=== PATIENT | female | born 1935 | race Caucasian/White ===

== ENCOUNTER 2017-01-23 13:38 | Inpatient (IN) | payer MEDICARE, OTHER ==
[~2017-01-23] VITALS: Ht 152.4 cm; Wt 52.4 kg
[~2017-01-23 13:38] MED LIST: ATIVAN0.5 MG PO; EXELON1 PATCH .2 TRANSDERM; KLONOPIN0.5 MG PO; LISINOPRIL10 MG PO; NAMENDA5 MG PO; SEROQUEL25 MG PO; SYNTHROID25 MCG PO; SYNTHROID50 MCG PO
[2017-01-23] MEDS ORDERED: EXELON1 PATCH .2 TRANSDERM (14:15)
[2017-01-23] MEDS ORDERED: LEXAPRO10 MG PO (14:15)
[2017-01-23] MEDS ORDERED: VITAMIN D250000 UNIT PO (14:16)
[2017-01-23] MEDS ORDERED: HYDROCODON-ACE1 EAC7 PO (14:17)
[2017-01-23] MEDS ORDERED: PREVACID15 MG PO (14:18)
[2017-01-23] MEDS ORDERED: MELATONIN10 M1 PO (15:04)
[2017-01-23] MEDS ORDERED: SYNTHROID50 MCG PO (15:04)
[2017-01-23 15:19] VITALS: BP 138/67
[2017-01-23 15:20] VITALS: BMI 21.1
--- NOTE | 2017-01-23 15:26 | NUR ---
PT WAS ADMITTED FROM HOME BY A REFERAL FROM PCP DR. SARMIENTO. IT WAS REPORTED THAT THE WAS HALLUCINATING AT HOME AND SEEING PEOPLE TRYING TO BREAK INTO HER HOME. PT LIVES AT HOME WITH SPOUSE BUT SPOUSE IS NOW IN [facility]. PT IS AMBULATORY WITH A WALKER. PT FELL THIS MORNING PER DAUGHTER. PT IS A DNR. DTR TO BRING LIVING WILL TO UNIT. PT IS ORIENTED TO PERSON ONLY. CODE WORD IS JONATHAN. FALL PRECAUTIONS INITIATED. WILL CONTINUE TO MONITOR.
[2017-01-23 18:28] VITALS: BP 138/67; BMI 21.1
[2017-01-23 21:41] VITALS: BP 157/66
--- NOTE | 2017-01-24 01:24 | NUR ---
B) patient alert and oriented to self and being in a hospital, very confused, anxious at times, says she should not be here, I) Administerd perscribed medications, monitored for safety, R) Medication compliant, resting now quietly, P) Continue plan of care.
[2017-01-24 05:36] LABS: BASOPHILS 0.2 % (0-2); EOSINOPHILS 4.8 % (0-7); HEMOGLOBIN 13.9 g/dL (12-16); LYMPHOCYTES 40.7 % (15-50); MCH 32.6 pg (26.0-34.0); MCHC 33.1 g/dL (31.0-37.0); MCV 98.6 fL (80.0-100.0); MEAN PLATELET VOLUME 11.1 fL (7.4-10.4); MONOCYTES 13.9 % (2-11); NEUTROPHILS 40.4 % (40-80); RBC 4.26 10x6/uL (4.00-5.40); RDW 13.5 % (11.5-14.5); WBC 4.2 10x3/uL (4.8-10.8)
[2017-01-24 05:37] LABS: PLATELET COUNT 179 10x3/uL (130-400)
[2017-01-24 05:39] LABS: HEMOGLOBIN A1C 5.2 % (4.8-6.0)
[2017-01-24 06:02] LABS: ALBUMIN 3.6 g/dL (3.4-5.0); ALKALINE PHOSPHATASE 84 U/L (46-116); ALT (SGPT) 19 U/L (10-68); BILIRUBIN - TOTAL 0.43 mg/dL (0.2-1.3); CALC OSMOLALITY 288 mosm/kg (275-300); CALCIUM 9.1 mg/dL (8.5-10.1); CARBON DIOXIDE 30.7 mmol/L (21.0-32.0); CHLORIDE - SERUM 106 mmol/L (98-107); CHOL - HDL RATIO 2.4 ratio (2.3-4.1); CHOLESTEROL, TOTAL 189 mg/dL (0-200); CREATININE - SERUM 0.7 mg/dL (0.6-1.3); GLUCOSE 83 mg/dL (74-106); HDL CHOLESTEROL 79 mg/dL (32-96); LDL CHOLESTEROL 98 mg/dL (0-100); LDL-HDL RATIO 1.2 ratio (1.5-3.5); POTASSIUM - SERUM 3.8 mmol/L (3.5-5.1); PROTEIN - SERUM 7.6 g/dL (6.4-8.2); SODIUM 145 mmol/L (136-145); THYROID STIMULATING HORMONE 1.71 uIU/mL (0.36-3.74); TRIGLYCERIDE 61 mg/dL (30-200); UREA NITROGEN 14 mg/dL (7-18); eGFR NON AFRICAN AMERICAN 85 mL/min (90-120)
[2017-01-24 08:12] VITALS: BP 156/82
--- NOTE | 2017-01-24 12:44 | NUR ---
B) PATIENT IS AWAKE AND ALERT, SHE HAS BEEN CALM AND PLEASANT. SHE HAS SOME CONFUSION, NO HALLUCINATIONS NOTED TODAY. PATIENT SELF PROPELS IN A W/C, BUT SHE NEEDS STAFF ASSIST FOR TRANSFERS. I) PROVIDE PRESCRIBED MEDS. R) PATIENT IS CONFUSED AND SHE IS SAYING "OK, I NEED TO CALL MY TO COME PICK ME UP" PATIENT'S IS IN THE HOSPITAL AND SHE EVEN TOLD STAFF HE IS IN THE OTHER HOSPITAL. P) CONTINUE POC.
--- NOTE | 2017-01-24 17:14 | NUR ---
PATIENT IS VERY DISTRAUGHT, SHE IS CRYING AND UPSET, SHE IS CONFUSED, SHE KEEPS ASKING THE SAME THINGS OVER AND OVER. SHE IS WORRIED ABOUT HER AND SHE IS WORRIED ABOUT PAYING FOR HER FOOD. SHE REDIRECTS FOR A MINUTE THEN SHE FORGETS, SHE HAS NO INSIGHT INTO HER ILLNESS. PROVIDED 2 MG HALDOL AND 0.5 MG ATIVAN PO. WILL MONITOR, SHE IS MAKING HERSELF ANXIOUS AND SHE IS UPSETTING SOME OF THE OTHER PATIENTS.
--- NOTE | 2017-01-24 18:02 | NUR ---
ATTEMPTED TO CALL PATIENTS SPOUSE, BUT THERE WAS NO ANSWER. PATIENT IS BEING MANIPULATIVE BECAUSE SHE WANTS TO LEAVE. SHE IS SAD. SHE IS SAYING "PEOPLE LOVE ME AND SHE DIDN'T HAVE TO BE MEAN TO ME"
--- NOTE | 2017-01-24 18:16 | NUR ---
PATIENT IS SITTING BY ANOTHER PATIENT AND SHE IS BEING A BIT CALMER NOW.
[2017-01-24 19:52] VITALS: BP 178/68
--- NOTE | 2017-01-24 21:30 | NUR ---
B) RECEIVED IN DAYROOM SITTING ON SOFA ALONE. AWAKE AND ALERT, BUT CONFUSED. CALM AND COOPERATIVE WITH ASSESSMENT. NO HALLUCINATIONS NOTED. I) ADMINISTERED PRESCRIBED MEDICATIONS. ASSESSMENT COMPLETED. VSS. R) COMPLIANT WITH TAKING MEDS WHOLE IN APPLESAUCE. REDIRECT AND REORIENT PRN. P) MAINTAINED FALL PRECAUTIONS AND CONTINUE PLAN OF CARE.
[2017-01-25 06:13] LABS: RAPID PLASMA REAGIN Non Reactive (Non Reactive)
[2017-01-25 08:18] LABS: FOLATE (FOLIC ACID) - SERUM >20.0 ng/mL (>3.0)
[2017-01-25 08:46] VITALS: BP 159/69
--- NOTE | 2017-01-25 09:20 | NUR ---
B) PATIENT BEGAN THE MORNING TEARFUL, WANTS TO GO HOME, NEEDS TO CHECK ON HER , WANTS TO CHECK ON HER , PATIENT HAS NO INSIGHT INTO HER SITUATION OR ILLNESS, SHE IS TEARFUL AND ANXIOUS. PATIENT I HAS BEEN IN A W/C SELF PROPELLING. I) PROVIDE ATIVAN 0.5 MG PO NOW TO RELIEVE SOME ANXIETY. R) PATIENT IS COMPLIANT WITH MEDS, BUT SHE IS WORRYING. P) CONTINUE POC.
[2017-01-25 19:30] VITALS: BP 146/65
--- NOTE | 2017-01-25 20:20 | NUR ---
ASSESSMENT COMPLETED. RECEIVED IN DAYROOM, GOING AROUND IN WHEELCHAIR. AWAKE AND CONFUSED. NO HALLUCINATIONS NOTED. ADMINISTERED MEDICATIONS WHOLE, BUT IN APPLESAUCE. REORIENT AND REDIRECT NEEDED. CONTINIE POC.
[2017-01-26 09:07] VITALS: BP 159/72
--- NOTE | 2017-01-26 10:43 | PN ---
PATIENT:JASEN BLEVINS MEDICAL RECORD: [id number] LOCATION:KEIRA Roman112 ADMISSION DATE: 01/23/17 PROGRESS NOTE DATE OF SERVICE: 01/25/2017 SUBJECTIVE: The patient's case was discussed with staff. She has no new complaint. OBJECTIVE: The patient is eating reasonably well. She is also sleeping well. She did require some p.r.n. medication yesterday for agitation, but so far today, she has been fine. ASSESSMENT: No change in diagnoses. PLAN: Supportive and educational interventions were made. Retirement prognosis is guarded. TRANSINT:[id number] Voice Confirmation ID: [id number] DOCUMENT ID: [id number] TYSON LOWERY MD at 1043 CC: [id number] DICTATION DATE: 01/25/17 1255 RADIO INTERFERENCE TROUBLE SHOOTER: 01/25/17 1803 ADM IN [place] [id number] [place] [id number]
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
[2017-01-26 19:30] VITALS: BP 129/72
--- NOTE | 2017-01-26 21:00 | NUR ---
B) RECEIVED IN DAYROOM SITTING IN WHEELCHAIR, SOCIALIZING WITH PEERS. IN A PLEASANT MOOD, BUT IS CONFUSED. SELF PROPELS IN W/C. CALM AND COOPERA- TIVE WITH ASSESSMENT. I) ADMINISTERED MEDICATIONS WHOLE IN APPLESAUCE. VSS. R) MEDICATION COMPLIANT. P) CONTINUE PLAN OF CARE.
[2017-01-27 07:00] VITALS: BP 138/83
--- NOTE | 2017-01-27 11:36 | PN ---
PATIENT:JASEN BLEVINS MEDICAL RECORD: [id number] LOCATION:[facility] Roman112 ADMISSION DATE: 01/23/17 PROGRESS NOTE DATE OF SERVICE: 01/26/2017 Psychiatric Progress Note SUBJECTIVE: The patient's case was discussed with staff. She has no new complaint. OBJECTIVE: The patient is in good behavioral control with limited insight about her condition. She has had some disruptive and anxious behavior. ASSESSMENT: No change in diagnoses. PLAN: The patient has been getting a low dose of Seroquel. I am going to change that to Trilafon in an effort to help organize her thinking. Her long-term prognosis is quite poor as her dementia is very advanced. TRANSINT:[id number] Voice Confirmation ID: [id number] DOCUMENT ID: [id number] TYSON LOWERY MD at 1136 CC: [id number] DICTATION DATE: 01/26/17 1124 SERVICE DISMANTLER: 01/26/17 1149 ADM IN [place] [id number] [place] [address]
[2017-01-27 12:11] VITALS: Ht 152.4 cm; Wt 52.4 kg
--- NOTE | 2017-01-27 13:43 | NUR ---
PT HAS BEEN PLEASANT AND HAS HAD NO TEARFUL EPISODES. PT IS STILL CONFUSED BUT IS EASILY REDIRECTED WHEN NEEDED. MEDICATIONS GIVEN ORDERED. FALL PRECAUTIONS MAINTAINED. WILL CONTINUE TO MONITOR AND CONTINUE WITH PLAN OF CARE.
--- NOTE | 2017-01-27 18:05 | NUR ---
UPDATED FAMILY ON PT'S MEDICATIONS AND BEHAVIOR. PT WAS TEARFUL DURING VISITATION BUT SHE STATED THAT THEY WERE HAPPY TEARS.
[2017-01-27 19:30] VITALS: BP 133/69
--- NOTE | 2017-01-28 02:57 | NUR ---
B) Patient alert and oriented to self and being in a hospital, worried about paying staff, wandering out of her room several times before settling down, I) Administered perscribed medications, redirected that her insurance will pay for her stay here, encouraged use of her walker, R) medication compliant, settled down and went to bed P) Continue plan of care.
[2017-01-28 08:13] VITALS: BP 153/92
--- NOTE | 2017-01-28 10:30 | PSY ---
PATIENT NAME:JASEN BLEVINS MEDICAL RECORD: [id number] : 31 LOCATION:KEIRA Matthew7 ADMISSION DATE: 01/23/17 ACCOUNT: [id number] PSYCHIATRIC EVALUATION DATE OF EVALUATION: 01/24/17 IDENTIFYING DATA: This is the second [facility] admission for this 81-year-old white female. HISTORY OF PRESENT ILLNESS: This patient was previously admitted to [facility] between 06/01/2016 and 06/13/2016. She carries a previous diagnosis of Alzheimer's dementia with behavioral disturbance and had previously been treated with memory enhancing medications such as Exelon patch. At the time of discharge from [facility], the patient did return home. She has been living with her , but he himself is now quite ill and is hospitalized at [facility]. On the day of admission, the patient herself, who ambulates with a walker, fell. She has numerous ongoing medical issues and most importantly had been showing a markedly worsened confusion as well as psychotic symptoms. She had begun having visual hallucinations that someone was trying to break into her home. She also had delusional ideation to the effect that her family members were ill and that she needed to go and take care of them. She also stated on interview that there are number of children that she is supposed to be taking care of and she cannot find her way out, so that she can care for "the little ones." Because of worsening cognition and the emergence of psychotic symptoms as well as impaired overall functionality, the patient is now admitted. PAST MEDICAL HISTORY: Significant for hypothyroidism, GERD and osteoporosis. MEDICATIONS: At time of admission included lisinopril, Klonopin 0.5 mg at bedtime, Namenda 2.5 mg b.i.d. and Seroquel 12.5 mg t.i.d. The patient has been followed by Dr. Jimmy Presley. The patient had previously taken Exelon transdermal patch, Lexapro and melatonin. FAMILY HISTORY: Noncontributory. SOCIAL HISTORY: The patient is . Her is currently hospitalized. The patient indicates that she used to work at a [employer] and no substance abuse issues are noted. The patient has a daughter and son-in-law, who lives in [place] and the daughter is now here managing things and will assist with probable placement. REVIEW OF SYSTEMS: Noncontributory. ALLERGIES: INCLUDE ALENDRONATE. MENTAL STATUS: On interview, the patient is seated in a wheelchair. She is initially pleasant and euthymic, but quickly becomes very tearful and distraught. Affect is labile. Speech at times is fluent but other times, is tangential and rambling. Content of thought is strongly positive for delusional ideation on interview. The patient has reported visual hallucinations. On sensorium testing, the patient is oriented only to person. She shows global memory impairment. DIAGNOSTIC IMPRESSION: AXIS I: Alzheimer dementia with psychotic features. AXIS II: No diagnosis. AXIS III: Hypothyroidism, gastroesophageal reflux disease and osteoporosis. AXIS IV: Severe. AXIS V: 36. PLAN: 1. The patient is admitted for further medical and psychiatric workup. 2. Daily supportive therapy. 3. We will assist family with placement. TRANSINT:[id number] Voice Confirmation ID: [id number] DOCUMENT ID: [id number] LASHON BURDICK III, MD at 1030 CC: [id number] DICTATION DATE: 01/24/17 1058 AIRPLANE ELECTRICIAN: 01/24/17 1127 ADM IN [facility] [address] [place] [id number]
--- NOTE | 2017-01-28 17:23 | NUR ---
Alert and oriented to name only, calm and cooperative with assessment. Monitor for any hallucinations, redirect and reorient as need. Compliant with medications. Ambualtory with walker. Reorients to place. No hallucinations noted at this time. Safety maintained. Continue plan of care.
[2017-01-28 19:19] VITALS: BP 167/74
--- NOTE | 2017-01-28 22:37 | NUR ---
RECEIVED IN HALLWAY. SITTING IN CHAIR WITH PEERS AT HER SIDE. SOCIALIZING WITH STAFF AND PEERS. CALM AND COOPERATIVE WITH CARE AND ASSESSMENTS. REDIRECT AND REORIENT NEEDED. ENCOURAGE TO EXPRESS NEEDS. RESTING IN BED EYES CLOSED AT THIS TIME. CONTINUE PLAN OF CARE
[2017-01-29 08:34] LABS: APPEARANCE CLOUDY (CLEAR); BACTERIA MANY /hpf (NONE SEEN); BILIRUBIN NEGATIVE (NEGATIVE); COLOR YELLOW (YELLOW); EPITHELIAL CELLS 0-5 /hpf (0-5); GLUCOSE NEGATIVE (NEGATIVE); KETONE NEGATIVE (NEGATIVE); LEUKOCYTE ESTERASE 1+ (NEGATIVE); MUCUS <1+ /lpf (NONE SEEN); NITRITE NEGATIVE (NEGATIVE); PROTEIN NEGATIVE (NEGATIVE); RED CELLS - URINE OCC /hpf (0-5); UROBILINOGEN NORMAL (NORMAL)
[2017-01-29 09:04] VITALS: BP 111/72
--- NOTE | 2017-01-29 09:30 | NUR ---
ALERT AND ORIENTED TO NAME ONLY, CALM AND COOPPERATIVE WITH ASSESSMENT. NO HALLUCINATIONS NOTED, REDIRECT AND REORIENT NEEDED. COMPLIANT WITH TAKING NEDICATIONS WHOLE IN APPLESAUCE. AMBULATORY WITH WALKER. MAINTAIN FALLS AND SAFETY. CONTINUE POC.
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
[2017-01-29 19:34] VITALS: BP 180/50
[2017-01-29 19:42] VITALS: BP 180/50
--- NOTE | 2017-01-29 21:41 | NUR ---
RECEIVED IN HALLWAY. STANDING AT NURSES STATION. CALM AND COOPERATIVE WITH CARE AND ASSESSMENTS. NO SIGNS OF HALLUCINATIONS. REDIRECT AND REORIENT NEEDED. CONTINUE PLAN OF CARE
[2017-01-30 07:32] VITALS: BP 147/62
--- NOTE | 2017-01-30 10:31 | PN ---
PATIENT:JASEN BLEVINS MEDICAL RECORD: [id number] LOCATION:KEIRA Roman112 ADMISSION DATE: 01/23/17 PROGRESS NOTE DATE OF SERVICE: 01/29/2017 SUBJECTIVE: No new complaint. OBJECTIVE: Staff report the patient is somewhat less labile than before. She tends to be more confused in the evenings. She appears to be tolerating medications reasonably well. On exam, mood is slightly anxious. Affect is shallow. Speech is tangential. Content of thought still exhibits some delusional ideation regarding her . Sensorium is unchanged. ASSESSMENT: No change in diagnosis. PLAN: 1. We will adjust Trilafon to 2 mg twice a day. 2. Continue other current medications. 3. Continue supportive therapy. TRANSINT:[id number] Voice Confirmation ID: [id number] DOCUMENT ID: [id number] LASHON BURDICK III, MD at 1031 CC: [id number] DICTATION DATE: 01/29/17 1132 GLOVE MAKER: 01/29/17 2101 ADM IN [place] [id number] [place] [address]
--- NOTE | 2017-01-30 16:46 | NUR ---
ASSESSMENT COMPLETED PER FLOW SHEET. CALM AND COOPERATIVE WITH ASSESSMENT. SHORTLY AFTER, SHE IS CONFUSED, CRYING AND UPSET ABOUT NEEDING TO MEET HER SISTER TO SEE HER , WHO IS SICK IN HOSPITAL. COMPLIANT WITH TAKING MEDICATIONS. MONITOR FOR SAFETY. CONTINUE PLAN OF CARE.
[2017-01-30 19:51] VITALS: BP 179/65
--- NOTE | 2017-01-31 00:41 | NUR ---
B) Recieved patient in the hallway, alert and oriented to self, social with staff and peers, calm and cooperative, I) Administered perscribed medications, R) medication compliant, resting quietly now, P) Continue plan of care,
[2017-01-31 07:48] VITALS: BP 146/45
--- NOTE | 2017-01-31 11:25 | PN ---
PATIENT:JASEN BLEVINS MEDICAL RECORD: [id number] LOCATION:ZaydaOFEJuan M Roman112 ADMISSION DATE: 01/23/17 PROGRESS NOTE DATE OF SERVICE: 01/30/2017 SUBJECTIVE: The patient states now that her is in the army and he is very ill. OBJECTIVE: The patient continues to have florid delusions regarding her and another family members. She continues to have episodes of tearfulness. On exam, mood is dysphoric. Affect is still somewhat labile. Speech is fairly fluent. Content of thought is positive for delusional ideation as noted above. Sensorium is unchanged. ASSESSMENT: No change in diagnosis. PLAN: 1. We will continue current medication. 2. Continue supportive therapy. TRANSINT:[id number] Voice Confirmation ID: [id number] DOCUMENT ID: [id number] LASHON BURDICK III, MD at 1125 CC: [id number] DICTATION DATE: 01/30/17 1042 COLLECTIONS ANALYST: 01/30/17 1839 ADM IN [place] [address] [place] [id number]
--- NOTE | 2017-01-31 12:46 | NUR ---
Nutrition Follow Up: Pt is eating 41% meal avg on a vegetarian diet. +BM 01/30/17. Wt gain since admit noted. Meds and labs reviewed. Rec continue current diet. Rec consider an appetite stimulant. RD following.
--- NOTE | 2017-01-31 17:53 | NUR ---
ASSESSMENT COMPLETED PER FLOW SHEET. TEARFUL AND CRYING TO GO HOME WITH SISTER TO SEE HER . WILL CONTINUE TO MONITOR.
[2017-01-31 20:10] VITALS: BP 147/69
--- NOTE | 2017-02-01 03:07 | NUR ---
B) Patient alert and oriented to self and being in the hospital, tearful at time, missing her and wanting to be with him, I) Administered perscribed medications, monitored for safety, R) Medication compliant, easily redirected, P) Continue plan of care.
--- NOTE | 2017-02-01 06:13 | PN ---
PATIENT:JASEN BLEVINS MEDICAL RECORD: [id number] LOCATION:KEIRA Roman112 ADMISSION DATE: 01/23/17 PROGRESS NOTE DATE OF SERVICE: 01/31/2017 SUBJECTIVE: The patient continues to state that she is worried about her . OBJECTIVE: The patient has continued to show extreme lability of affect. At times, she is pleasant and participates in group and other times she states that people in the group were trying to harm her. At times, she states that her has already and other times she does not seem to know where he is. On exam, mood is anxious, affect is very brittle. Speech is repetitive. Content of thought is positive for delusional ideation due to sensorium deficits. Sensorium itself is unchanged. ASSESSMENT: No change in diagnosis. PLAN: 1. Maintain current medication regimen. 2. Continue supportive therapy. TRANSINT:[id number] Voice Confirmation ID: [id number] DOCUMENT ID: [id number] LASHON BURDICK III, MD at 0613 CC: [id number] DICTATION DATE: 01/31/17 1210 GASTROENTEROLOGY TEACHER: 01/31/17 1800 ADM IN [place] [id number] [place] [address]
[2017-02-01 07:54] VITALS: BP 183/74
--- NOTE | 2017-02-01 16:16 | NUR ---
pt continues to have delusions in regards to wanting to call her parents. pt does have to be redirected back to reality based thinking. periods of crying have decreased today. participated in groups and social with staff and other pts. no aggression noted. medications given as ordered. fall precautions maintained. will continue to monitor and continue with plan of care.
[2017-02-01 19:30] VITALS: BP 154/52
--- NOTE | 2017-02-02 00:47 | NUR ---
B) Patient alert and oriented to self and being in a hospital, very confused and worried about her , wanting to go home and be with him, I) Administered perscribed medications, monitored for safety, R) Medication compliant, resting quietly P) Continue plan of care.
[2017-02-02 07:47] VITALS: BP 138/103
--- NOTE | 2017-02-02 14:29 | NUR ---
ASSESSMENT COMPLETED. STILL CONFUSED, BUT COOPERATIVE AND FRIENDLY WITH STAFF AND PEERS. HAS NOT BEEN TEARFUL AND CRYING THIS MORNING. COMPLIANT WITH TAKING PRESCRIBED MEDICATIONS. GOOD BEHAVIOR CONTROL WITH NO AGGRESSION NOTED. MONITOR FOR SAFETY. CONTINUE PLAN OF CARE.
[2017-02-02 19:30] VITALS: BP 167/51
--- NOTE | 2017-02-03 03:01 | NUR ---
B) Patient alert and oriented, calm and cooperative, happy that she had visitors today, I) Administered scheduled medications, monitored for falls, R) Medications compliant, resting in bed, P) Continue plan of care.
--- NOTE | 2017-02-03 05:30 | PN ---
PATIENT:JASEN BLEVINS MEDICAL RECORD: [id number] LOCATION:KEIRA Roman112 ADMISSION DATE: 01/23/17 PROGRESS NOTE DATE OF SERVICE: 02/01/2017 SUBJECTIVE: No new complaint. OBJECTIVE: The patient's daughter is working with staff regarding discharge plans. The patient herself continues to show some liability of affect. On exam, mood is anxious. Affect is rather brittle. Speech is tangential. Content of thought continues to show delusional ideation. Sensorium shows no change. ASSESSMENT: No change in diagnosis. PLAN: 1. Maintain current medication. 2. Continue supportive therapy. TRANSINT:[id number] Voice Confirmation ID: [id number] DOCUMENT ID: [id number] LASHON BURDICK III, MD at 0530 CC: [id number] DICTATION DATE: 02/01/17 1232 STONE CARVER: 02/01/172016 ADM IN [facility] [address] [place] [address]
[2017-02-03 08:07] VITALS: BP 147/68
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
[2017-02-03 20:01] VITALS: BP 108/76
--- NOTE | 2017-02-03 21:26 | NUR ---
RECEIVED IN DAYROOM. SITTING WITH A PEER SOCIALIZING. CALM AND COOPERATIVE WITH CARE AND ASSESSMENTS. NO SIGNS OF HALLUCINATIONS. ENCOURAGE TO EXPRESS NEEDS. CONTINUES TO SOCIALIZE WITH PEERS. CONTINUE PLAN OF CARE
[2017-02-04 07:00] VITALS: BP 152/66
[2017-02-04 19:45] VITALS: BP 176/77
--- NOTE | 2017-02-05 02:07 | NUR ---
RECEIVED IN BEDROOM. LAYING WITH EYES OPEN. CALM AND COOPERATIVE WITH CARE AND ASSESSMENTS. NO SIGNS OF HALLUCINATIONS. REDIRECT AND REORIENT NEEDED. RESTING EYES CLOSED AT HIS TIME. CONTINUE PLAN OF CARE
[2017-02-05 07:57] VITALS: BP 136/78
--- NOTE | 2017-02-05 10:39 | NUR ---
PT IS ALERT BUT CONFUSED TO TIME/SITUATION/PLACE. PT AM MEDS ADMINISTERED. PT COMPLIANT. PT RESTING IN DAY ROOM WATCHING TV AT THIS TIME. [facility].
--- NOTE | 2017-02-05 14:33 | NUR ---
ATTEMPTED TO GIVE PT PO PRN MONIQUE. PT REFUSED TO TAKE IT. PT GIVEN PRN IM MONIQUE FOR ONSET AGGRESSION. POC.
--- NOTE | 2017-02-05 16:30 | NUR ---
DR. GROSSMAN VISITED. PATIENT BECAME TEARFUL, ANXIOUS AND PARANOID THAT STAFF WAS AGAINST HER AND GOING TO DO SOMETHING TO HER. REDIRECTED TO STAY IN DAYROOM AND SIT IN CHAIR.
[2017-02-05 19:26] VITALS: BP 174/73
--- NOTE | 2017-02-05 22:25 | NUR ---
RECEIVED IN DAYROOM. WALKING ABOUT ROOM. CONFUSED. CALM AND COOPERATIVE WITH CARE AND ASSESSMENTS. NO SIGNS OF HALLUCINATIONS. REDIRECT AND REORIENT NEEDED. RESTING EYES CLOSED AT THIS TIME. CONTINUE PLAN OF CARE
[2017-02-06 08:38] VITALS: BP 166/57
--- NOTE | 2017-02-06 12:35 | PN ---
PATIENT:JASEN BLEVINS MEDICAL RECORD: [id number] LOCATION:KEIRA Roman112 ADMISSION DATE: 01/23/17 PROGRESS NOTE DATE OF SERVICE: 02/05/2017 SUBJECTIVE: The patient's case was discussed with staff. She has no new complaint. OBJECTIVE: The patient denies any paranoia or psychotic symptoms. She is tolerating her medicines well. ASSESSMENT: No change in diagnoses. PLAN: Current medicines and therapies have been reviewed and will be maintained. Long-term prognosis is guarded. TRANSINT:[id number] Voice Confirmation ID: [id number] DOCUMENT ID: [id number] TYSON LOWERY MD at 1235 CC: [id number] DICTATION DATE: 02/05/17 1421 DRILL PRESS SET UP OPERATOR: 02/05/17 1541 ADM IN [place] [id number] [place] [address]
--- NOTE | 2017-02-06 14:26 | NUR ---
Nutrition Follow Up: Chart reviewed. Pt is eating 73% meal avg on a vegetarian diet. +BM 02/05/17. No new wt or labs to assess. Meds noted. Rec continue current diet. RD following.
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
[2017-02-06 19:30] VITALS: BP 160/79
--- NOTE | 2017-02-07 00:51 | NUR ---
B) Patient alert and oriented to self and being in a hospital, wanting to see her , restless at times, I) Administered perscribed medications, monitored for safety, R) Medication compliant, resting quietly nw, P) Continue plan of care.
[2017-02-07 08:52] VITALS: BP 189/69
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
--- NOTE | 2017-02-07 10:26 | PN ---
PATIENT:JASEN BLEVINS MEDICAL RECORD: [id number] LOCATION:[facility] ADMISSION DATE: 01/23/17 PROGRESS NOTE DATE OF SERVICE: 02/06/2017 SUBJECTIVE: No new complaint. OBJECTIVE: The patient tends to be easily upset by another patient to his made paranoid statements. Staff will keep them . On exam, mood is slightly anxious. Affect is constricted. Speech is tangential. Content of thought continues to exhibit moderate delusional ideation. Sensorium shows no change. ASSESSMENT: No change in diagnosis. PLAN: 1. Maintain current medication. 2. Continue supportive therapy. TRANSINT:[id number] Voice Confirmation ID: [id number] DOCUMENT ID: [id number] LASHON BURDICK III, MD at 1026 CC: [id number] DICTATION DATE: 02/06/17 1059 SENIOR TECHNICAL PROJECT MANAGER: 02/06/17 1338 ADM IN [facility] [address] [place] [address]
--- NOTE | 2017-02-07 16:49 | NUR ---
AWAKE AND ALERT, ORIENTED TO SELF AND THAT HER IS SICK. CALM AND COOPERATIVE WITH CARE AND ASSESSMENT. VSS. AMBULATES WITH A WALKER. REORIENT AND REDIRECT NEEDED. FALL PRECAUTIONS MAINTAINED. MEDICATION COMPLIANT. WILL CONTINUE TO MONITOR.
[2017-02-07 19:23] VITALS: BP 174/66
--- NOTE | 2017-02-08 01:03 | NUR ---
B) Patient alert and oriented to self, restless and anxious at times, wanting to be with her , I) Administered schduled medications, monitored for falls and safety, redirected as needed, R) Medication compliant, friendly and social with staff and peers, P) Continue plan of care.
[2017-02-08 08:17] VITALS: BP 162/80
--- NOTE | 2017-02-08 10:02 | NUR ---
B) PATIENT IS AWAKE, SHE IS NERVOUS AND ANXIOUS, SHE IS CONCERNED ABOUT HER AND HAS ASKED STAFF TO TAKE HER TO SEE HIM OR AT LEAST GO CHECK ON HIM. PATIENT IS CONFUSED, SHE IS ORIENTED TO SELF, DOES NOT KNOW THE PLACE OR TIME. SHE CAN AMBULATE INDEPENDENTLY. I) PROVIDE PRESCRIBED MEDS. R) PATIENT IS COMPLIANT WITH MEDS AND UNIT MILIEU. P) CONTINUE POC.
[2017-02-08 20:44] VITALS: BP 184/64
--- NOTE | 2017-02-09 01:52 | NUR ---
B) Patient alert and oriented to self, very worried about her , social with staff and peers, I) Administered perscribed medications, redirected as needed, R) medication compliant, restless at night, P) Continue plan of care.
[2017-02-09 08:07] VITALS: BP 171/81
--- NOTE | 2017-02-09 08:29 | PN ---
PATIENT:JASEN BLEVINS MEDICAL RECORD: [id number] LOCATION:[facility] ADMISSION DATE: 01/23/17 PROGRESS NOTE DATE OF SERVICE: 02/08/2017 SUBJECTIVE: The patient's case was discussed with staff. She has no new complaint. OBJECTIVE: The patient is in good behavioral control with limited insight about her condition. Eye contact is poor. ASSESSMENT: No change in diagnoses. PLAN: Brief supportive and educational interventions were made. Halfway prognosis is guarded. The patient's medications were reviewed and they will be maintained. TRANSINT:[id number] Voice Confirmation ID: [id number] DOCUMENT ID: [id number] TYSON LOWERY MD at 0829 CC: [id number] DICTATION DATE: 02/08/171711 ELECTRONICS SYSTEM MECHANIC: 02/08/17 2143 ADM IN [place] [place] [address]
--- NOTE | 2017-02-09 13:35 | NUR ---
PATIENTS DAUGHTER LILI CALLED ON THE REHAB PHONE, SHE IS REQUESTING THAT HER MOTHER BE DISCHARGED TO HOME WITH HER NOW. LILI THE PATIENTS DAUGHTER IS CRYING AND SAYING "MY DAD IS DYING AND I JUST THINK SHE NEEDS TO BE HERE WITH HER " CALLED DR. LOWERY AND LET HIM KNOW THE SITUATION AND HE SAYS THE PATIENT IS DR. GUEVARA AND HE WILL DISCHARGE THE PATIENT AGAINST MEDICAL ADVISE. HE EXPRESSES HIS CONDOLENCES.
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
--- NOTE | 2017-02-11 13:31 | PN ---
PATIENT:JASEN BLEVINS MEDICAL RECORD: [id number] LOCATION:[facility] ADMISSION DATE: 01/23/17 PROGRESS NOTE DATE OF SERVICE: 02/09/2017 SUBJECTIVE: The patient's case was discussed with staff. She has no new complaint. OBJECTIVE: The patient is not eating adequately. She has poor insight about her situation. She clearly is severely impaired cognitively. ASSESSMENT: No change in diagnoses. PLAN: The patient will be given Megace to assist with her appetite stimulation. Her long-term prognosis is guarded. TRANSINT:[id number] Voice Confirmation ID: [id number] DOCUMENT ID: [id number] TYSON LOWERY MD at 1331 CC: [id number] DICTATION DATE: 02/09/17 0857 LABORER HOISTING: 02/09/17 1634 DIS IN 02/09/17 [facility] [address] [place] [address]
--- NOTE | 2017-02-13 10:05 | DS ---
PATIENT:JASEN BLEVINS :31 MEDICAL RECORD: [id number] DISCHARGE SUMMARY ADMISSION DATE: 01/23/17 DISCHARGE DATE: 02/09/17 DATE OF ADMISSION: 01/23/2017 DATE OF DISCHARGE: 02/09/2017 HISTORY OF PRESENT ILLNESS: [facility] admission for this 81-year-old white female. The patient had a previous diagnosis of Alzheimer dementia with behavioral disturbance. The patient had been living with her , but he had become ill and was hospitalized at [facility]. The patient had had several falls prior to this admission. She had begun to exhibit psychotic symptoms including visual hallucinations and delusional ideation about her family members. Because of worsening mental status, the patient was admitted. For further details, please see previously dictated history. COURSE IN THE HOSPITAL: The patient was seen in consultation by Dr. Joseph. Dr. Joseph noted the presence of hypertension, vitamin D deficiency, hypothyroidism and peripheral neuropathy. From a medication standpoint, the patient was initially treated quite conservatively. Eventually, it was elected to begin perphenazine 2 mg in the morning and 4 mg at bedtime because of the extreme persistence of her psychotic symptoms. She was also maintained on Exelon patch 9.5 mg daily for her Alzheimer's symptoms. She was also given Namenda 5 mg twice a day. In addition, she was started on Lexapro 10 mg daily for her depressive symptoms. Over the course of the hospitalization, the patient showed very gradual improvement, but continued to show some degree of affective lability during the final week of her stay. On the day of discharge, the patient's daughter abruptly demanded that the patient be discharged from the hospital because the daughter was fearful that the patient's was deteriorating physically. Staff recommended against this especially in view of the fact that arrangements were in progress to have the patient transferred to a jail and the process would only take a few more days; however, the daughter insisted on having the patient discharged. Therefore, the patient was discharged against medical advice. FINAL DIAGNOSES: AXIS I: Alzheimer's dementia with behavioral disturbance. AXIS II: No diagnosis. AXIS III: Hypothyroidism, gastroesophageal reflux disease, osteoporosis. AXIS IV: Moderate. AXIS V: 38. PLAN: The patient is discharged against medical advice. TRANSINT:[id number] Voice Confirmation ID: [id number] DOCUMENT ID: [id number] DISCHARGE SUMMARY REPORT [id number] JASEN BLEVINS III, LASHON Infante MD at 1005 CC: [id number] DICTATION DATE: 02/12/17 1255 STOCK SORTER: 02/13/17 0110 DIS IN 02/09/17 [place] [id number] [place] [id number]
== END 2017-02-09 14:35 | disposition left against medical advice (07) | DRG 57 ==
LOC: D.PSYCH 13:38
PROVIDERS: Psychiatry & Neurology Psychiatry; ADMIT Psychiatry & Neurology Psychiatry
DX: G30.9 Alzheimer's disease, unspecified (principal); F02.81 Dementia in other diseases classified elsewhere, unspecified severity, with behavioral disturbance; Z91.81 History of falling; R26.9 Unspecified abnormalities of gait and mobility; E03.9 Hypothyroidism, unspecified; K21.9 Gastro-esophageal reflux disease without esophagitis; M81.0 Age-related osteoporosis without current pathological fracture; F41.8 Other specified anxiety disorders; I10 Essential (primary) hypertension; E55.9 Vitamin D deficiency, unspecified; G62.9 Polyneuropathy, unspecified; S16.1XXA Strain of muscle, fascia and tendon at neck level, initial encounter; X58.XXXA Exposure to other specified factors, initial encounter

== ENCOUNTER 2017-02-12 14:22 | Inpatient (IN) | payer MEDICARE, OTHER ==
[~2017-02-12] VITALS: Ht 152.4 cm; Wt 48.5 kg
--- NOTE | 2017-02-12 13:18 | NUR ---
RECEIVED TO SHELTER ROOM 1131 FROM HOME, ACCOMPANIED WITH DAUGHTER,LILI DX; ALTERED MENTAL STATUS WITH INCREASED CONFUSION. MARCO DAVALOS RN TALKED WITH DR. BURDICK PRIOR TO ADMISSION. WILL CONTINUE TO MONITOR.
[~2017-02-12 14:22] MED LIST changes: +HYDROCODON-ACE1 EAC7 PO; +LEXAPRO10 MG PO; +MELATONIN10 M1 PO; +PREVACID15 MG PO; +VITAMIN D250000 UNIT PO
[2017-02-12] MEDS ORDERED: PRINIVIL20 MG PO (15:44)
[2017-02-12] MEDS ORDERED: MEGACE40 MG PO (15:45)
[2017-02-12] MEDS ORDERED: PROTONIX40 MG PO (15:46)
[2017-02-12] MEDS ORDERED: LIORESAL 10 MG10 MG PO (15:46)
[2017-02-12] MEDS ORDERED: PERPHENAZINE4 MG PO (15:48)
[2017-02-12] MEDS ORDERED: PERPHENAZINE2 MG PO (15:49)
[2017-02-12] MEDS ORDERED: HALDOL5 MG/ML IM (15:51)
[2017-02-12] MEDS ORDERED: HALDOL5 MG PO (15:53)
[2017-02-12 19:15] VITALS: BP 185/59
--- NOTE | 2017-02-12 20:10 | NUR ---
RECEIVED IN DAYROOM. WALKING AROUND SOCIALIZING WITH PEERS. CONFUSED. CALM AND COOPERATIVE WITH CARE AND ASSESSMENTS. REDIRECT AND REORIENT NEEDED. CONTINUES TO SOCIALIZE WITH PEERS. CONTINUE PLAN OF CARE
[2017-02-13 07:45] LABS: BASOPHILS 0.3 % (0-2); EOSINOPHILS 2.7 % (0-7); HEMATOCRIT 42.3 % (36.0-48.0); HEMOGLOBIN 13.9 g/dL (12-16); IMMATURE GRANULOCYTES 0.2 % (0-5); LYMPHOCYTES 26.6 % (15-50); MCH 32.2 pg (26.0-34.0); MCHC 32.9 g/dL (31.0-37.0); MCV 97.9 fL (80.0-100.0); MEAN PLATELET VOLUME 10.8 fL (7.4-10.4); MONOCYTES 8.5 % (2-11); NEUTROPHILS 61.7 % (40-80); PLATELET COUNT 193 10x3/uL (130-400); RBC 4.32 10x6/uL (4.00-5.40); RDW 13.1 % (11.5-14.5)
[2017-02-13 08:00] VITALS: BP 156/68
[2017-02-13 08:21] LABS: ALBUMIN 3.7 g/dL (3.4-5.0); ANION GAP 14.7 mmol/L (8-16); BILIRUBIN - TOTAL 0.5 mg/dL (0.2-1.3); CALCIUM 8.8 mg/dL (8.5-10.1); CARBON DIOXIDE 26.2 mmol/L (21.0-32.0); CREATININE - SERUM 0.8 mg/dL (0.6-1.3); POTASSIUM - SERUM 3.9 mmol/L (3.5-5.1); PROTEIN - SERUM 7.2 g/dL (6.4-8.2)
[2017-02-13 13:24] VITALS: BMI 22.0
--- NOTE | 2017-02-13 19:41 | NUR ---
RECEIVED IN DAYROOM. SITTING AT TABLE WITH STAFF AND PEERS. VERY CONFUSED. CALM AND COOPERATIVE WITH CARE AND ASSESSMENTS. IN GOOD SPIRITS. ENCOURAGE TO EXPRESS NEEDS. REORIENT NEEDED. CONTINUE TO SIT AT TABLE WITH STAFF AND PEERS. CONTINUE PLAN OF CARE
[2017-02-13 20:18] VITALS: BP 178/71
[2017-02-14 08:00] VITALS: BP 100/65
--- NOTE | 2017-02-14 13:01 | NUR ---
B) PATIENT IS SMILING AND LAUGHING TODAY. SHE IS INTERACTING WITH STAFF AND PEERS, SHE IS CONFUSED, SHE IS ORIENTED TO SELF ONLY. SHE CAN AMBULATE WITH A WALKER. I) PROVIDE PRESCRIBED MEDS. R) PATIENT IS COMPLIANT WITH MEDS AND UNIT MILIEU. P) CONTINUE POC.
--- NOTE | 2017-02-14 16:07 | NUR ---
PATIENT HAS LISTENED TO ANOTHER PATIENT'S BIZARRE COMMENTS ABOUT SHOOTING GUNS AND WATCHED TV AND INTERMIXED OTHER LIFE EVENTS AND SHE HAS NOW BECOME TEARFUL AND FRANTIC THAT SOMEONE IS GOING TO COME HERE AND KILL HER AND ALL THE STAFF. SHE IS CRYING AND ANXIOUS AND FEARFUL FOR HER LIFE AND SHE IS BEGGING STAFF TO SIT WITH HER, BUT THE MORE STAFF TRY TO CONSOLE HER THE MORE ANXIOUS SHE BECOMES. PROVIDED DIVERSIONS, THE BIBLE TO READ, ICED WATER, A SNACK, BUT SHE HAS HERSELF CONVINCED IT IS REAL. ATIVAN 0.5 MG PO AND HALDOL 2 MG PO PROVIDED TO RELIEVE HER ANXIETY.
--- NOTE | 2017-02-14 16:45 | NUR ---
PATIENT IS NOW TALKING RELIGIOUS, BUT SHE IS STARTING TO SAY THINGS ABOUT SATAN AND HOW HE IS HERE AND THAT SOME OF THE PEOPLE HERE ARE DEVIL AND MORE STUFF ABOUT SATAN. REDIRECTED PATIENT TO APPROPRIATE BEHAVIOR. SHE DOES NOT WANT TO REDIRECT.
--- NOTE | 2017-02-14 17:00 | NUR ---
PATIENT NOW CALMER AND SHE IS SLEEPING IN A CHAIR IN A CHAIR IN THE DAY ROOM.
[2017-02-14 19:45] VITALS: BP 121/42
--- NOTE | 2017-02-15 03:31 | NUR ---
B) Patient sleeping and and very tired today, restless at times, wandering out of her room several times and then asking where her room is . I) Administered schduled medications, monitored for safety, redireced as needed. R) Medication compliant, very confused and worried about her and daughter. P) Continue plan of care.
--- NOTE | 2017-02-15 05:41 | PN ---
PATIENT:JASEN BLEVINS MEDICAL RECORD: [id number] LOCATION:[facility] ADMISSION DATE: 02/12/17 PROGRESS NOTE DATE OF SERVICE: 02/14/2017 SUBJECTIVE: No new complaint. OBJECTIVE: The patient is stabilized on medication. She is not exhibiting as much affect of liability as she had previously. On exam, mood is for the most part euthymic. Affect is bland. Speech is rather terse. Content of thought is essentially unchanged. Sensorium unchanged. ASSESSMENT: No change in diagnosis. PLAN: 1. Continue all current medications. 2. Continue supportive therapy. TRANSINT:[id number] Voice Confirmation ID: [id number] DOCUMENT ID: [id number] LASHON BURDICK III, MD at 0541 CC: [id number] DICTATION DATE: 02/14/17 1240 BUCKLE ASSEMBLER: 02/14/172023 ADM IN [facility] [address] [place] [address]
[2017-02-15 08:38] VITALS: BP 183/101
--- NOTE | 2017-02-15 15:03 | NUR ---
B) PATIENT IS AWAKE AND ALERT, SHE IS COMPLIANT. SHE IS ORIENTED TO HERSELF ONLY. SHE AMBULATES WITH A WALKER. I) PROVIDE PRESCRIBED MEDS. R) PATIENT IS COMPLIANT WITH MEDS. P) CONTINUE POC.
[2017-02-15 20:03] VITALS: BP 169/62
--- NOTE | 2017-02-16 02:02 | NUR ---
B) Patient is alert and oriented to self only, very confused and restless at times, I) Administered scheduled medications, monitored for falls and safety, redirected as needed R) medication compliant, unable to orient due to her not being able to retain any information P) Continue plan of care.
[2017-02-16 15:57] VITALS: BP 162/63
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
[2017-02-16 19:30] VITALS: BP 183/96
--- NOTE | 2017-02-16 20:20 | PN ---
PATIENT:JASEN BLEVINS MEDICAL RECORD: [id number] LOCATION:[facility] ADMISSION DATE: 02/12/17 PROGRESS NOTE DATE OF SERVICE: 02/15/2017 SUBJECTIVE: No new complaint. OBJECTIVE: The patient continues to exhibit delusional ideation from the time. She has episodes of agitation and requires redirection. On exam today, the patient is much calmer, mood is still slightly anxious. Affect is shallow. Speech is tangential. Content of thought exhibits delusional ideation, which is episodic. Sensorium is unchanged. ASSESSMENT: No change in diagnosis. PLAN: 1. Maintain present medications. 2. Continue supportive therapy. TRANSINT:[id number] Voice Confirmation ID: [id number] DOCUMENT ID: [id number] LASHON BURDICK III, MD at 2020 CC: [id number] DICTATION DATE: 02/15/17 1142 MOLD SHIFTER: 02/15/17 1859 ADM IN [facility] [address] [place] [address]
--- NOTE | 2017-02-17 03:45 | NUR ---
B) Patient alert and oriented to self, sad and tearful at times,I) Administered scheduled medication, monitored for falls and safety R) Medication compliant. very confused and unable to retain informantion, P) Continue plan of care.
[2017-02-17 07:00] VITALS: BP 152/66
--- NOTE | 2017-02-17 14:41 | NUR ---
CONFUSED.ORIENTED TO SELF ONLY.IS BETTER IN REGARDS TO ASKING ABOUT HUSDAND AND WANTING TO BE WITH HIM.PROPELLS SELF IN WHEEELCHAIR.IS COMPLIANT WITH STAFF AND MEDS.WILL CONTINUE WITH PLAN OF CARE,MONITOR FOR CHANGES AND SAFETY.
[2017-02-17 19:31] VITALS: BP 147/65
--- NOTE | 2017-02-17 20:31 | NUR ---
RECEIVED IN DAYROOM. LAYING WITH EYES OPEN ON SOFA. CONFUSED. CALM AND COOPERATIVE WITH CARE AND ASSESSMENTS. VERY CONFUSED. REDIRECT AND REORIENT NEEDED. CONTINUES TO LAY QUIETLY. CONTINUE PLAN OF CARE
[2017-02-18 07:00] VITALS: BP 184/87
[2017-02-18 09:23] VITALS: BMI 33.0
--- NOTE | 2017-02-18 09:52 | PN ---
PATIENT:JASEN BLEVINS MEDICAL RECORD: [id number] LOCATION:[facility] ADMISSION DATE: 02/12/17 PROGRESS NOTE DATE OF SERVICE: 02/17/2017 SUBJECTIVE: No new complaint. OBJECTIVE: The patient continues to show some lability of affect but can be redirected. On exam, mood is somewhat anxious. Affect is shallow. Speech is repetitive. Content of thought shows preoccupation with family member moderate delusional ideation. Sensorium is unchanged. ASSESSMENT: No change in diagnosis. PLAN: 1. Maintain current medication. 2. Continue supportive therapy. TRANSINT:[id number] Voice Confirmation ID: [id number] DOCUMENT ID: [id number] LASHON BURDICK III, MD at 0952 CC: [id number] DICTATION DATE: 02/17/17620 HAND METHOD LASTING MACHINE OPERATOR: 02/17/17 0917 ADM IN [place] [address] [place] [address]
--- NOTE | 2017-02-18 15:00 | NUR ---
VERY CONFUSED, ORIENTED TO SELF ONLY. CALM AND COOPERATIVE WITH CARE AND ASSESSMENT. COMPLIANT WITH TAKING MEDICATIONS. SELF-PROPELS IN WHEELCHAIR. SAFETY PRECAUTIONS MAINTAINED. WILL CONTINUE TO MONITOR.
--- NOTE | 2017-02-18 19:50 | NUR ---
RECEIVED IN HALLWAY. VERY CONFUSED. CALM AND COOPERATIVE WITH CARE AND ASSESSMENTS. REDIRECT AND REORIENT NEEDED. REINFORCE FALLS SAFETY. BED ALARM ON. RESTING IN BED EYES OPEN AT THIS TIME. CONTINUE PLAN OF CARE
[2017-02-18 19:55] VITALS: BP 141/58
[2017-02-19 09:39] VITALS: BP 117/59
--- NOTE | 2017-02-19 11:09 | PN ---
PATIENT:JASEN BLEVINS MEDICAL RECORD: [id number] LOCATION:[facility] ADMISSION DATE: 02/12/17 PROGRESS NOTE DATE OF SERVICE: 02/18/2017 SUBJECTIVE: No new complaint. OBJECTIVE: The patient has been fairly cooperative over the weekend. Significantly, she has not mentioned her at all. The arrangements for placement are still pending. On exam, mood is euthymic, affect is shallow and somewhat child-like. Speech is rather terse. Content of thought is negative for overt psychosis. Sensorium shows no change. ASSESSMENT: No change in diagnosis. PLAN: 1. Maintain current medication. 2. Continue supportive therapy. TRANSINT:[id number] Voice Confirmation ID: [id number] DOCUMENT ID: [id number] LASHON BURDICK III, MD at 1109 CC: [id number] DICTATION DATE: 02/18/17 1146 PROFESSOR OF BIOLOGY: 02/18/17 1724 ADM IN [place] [id number] [place] [address]
--- NOTE | 2017-02-19 15:56 | NUR ---
AWAKE AND ALERT. VERY CONFUSED, BUT IS CALM AND COOPERATIVE WITH CARE AND ASSESSMENT. SMILING AND SOCIABLE WITH PEERS AND STAFF. ADMINISTERED PRESCRIBED MEDS. COMPLIANT WITH MEDS. MIANTAIN SAFETY PRECAUTIONS. CONTINUE PLAN OF CARE.
[2017-02-19 19:56] VITALS: BP 153/62
--- NOTE | 2017-02-19 20:00 | NUR ---
RECEIVED IN HALLWAY. SITTING WITH PEERS SOCIALIZING. CALM AND COOPERATIVE WITH CARE AND ASSESSMENTS. VERY CONFUSED. REDIRECT AND REORIENT NEEDED. REFORCE FALLS SAFETY. CONTINUES TO SOCIALIZE WITH HER PEERS. CONTINUE PLAN OF CARE
[2017-02-20 08:00] VITALS: BP 151/69
--- NOTE | 2017-02-20 09:57 | NUR ---
B) Recd pt. in dining room for b'fast, appetite fair, drowsy, pleasant mood, denies pain or needs. I) Meds admin per orders, group therapy provided. R) Ivon meds well, participates in group when cued. P) Continue plan of care including meds and group activity.
--- NOTE | 2017-02-20 10:52 | NUR ---
Nutrition Follow Up: Chart reviewed. Pt is eating 41% on a vegetarian diet. +BM 02/14/17. Labs reviewed. Meds noted including Megace. Rec continue current diet. Will continue to provide selective menus and honor food preferences. RD following.
--- NOTE | 2017-02-20 10:59 | PN ---
PATIENT:JASEN BLEVINS MEDICAL RECORD: [id number] LOCATION:[facility] ADMISSION DATE: 02/12/17 PROGRESS NOTE DATE OF SERVICE: 02/19/2017 SUBJECTIVE: The patient makes reference to her briefly. OBJECTIVE: The patient is generally pleasant. Mood is slightly anxious. Affect remains bland. Speech is repetitive. Content of thought is negative for overt psychosis. Sensorium unchanged. ASSESSMENT: No change in diagnosis. PLAN: 1. Maintain current medication. 2. Continue supportive therapy. TRANSINT:[id number] Voice Confirmation ID: [id number] DOCUMENT ID: [id number] LASHON BURDICK III, MD at 1059 CC: [id number] DICTATION DATE: 02/19/17 1154 TITLE I PARAPROFESSIONAL: 02/19/17 1839 ADM IN [place] [address] [place] [address]
[2017-02-20 19:47] VITALS: BP 95/67
--- NOTE | 2017-02-21 05:04 | NUR ---
B) Patient is alert and oriented to self, very confused, tearful at times, worried about her dog, I) Administered scheduled medications, redirected as needed, R) Medication compliant, wanders at times, friendly and pleasant, P) Continue plan of care.
[2017-02-21 10:02] VITALS: BP 124/59
--- NOTE | 2017-02-21 13:34 | NUR ---
B) PATIENT IS AWAKE AND ALERT, ORIENTED TO SELF ONLY, SHE IS NOT TEARFUL, SHE DID ASK ABOUT "WOO" TODAY, BUT SHE WAS TOLD THAT HE IS OK AND IN GOD'S HANDS. SHE IS CONFUSED. I) PROVIDE PRESCRIBED MEDS. R) PATIENT IS COMPLIANT WITH MEDS AND UNIT MILIEU. P) CONTINUE POC.
[2017-02-21 19:26] VITALS: BP 121/70
--- NOTE | 2017-02-22 03:06 | NUR ---
B) Patient is alert and oriente dto self, very confused and unaware of being in a hospital, watching TV, I) Administered scheduled medications, monitored for safety, R) Medication compliant, no tearful episodes noted this shift, calm and pleasant, P) Continue plan of care.
--- NOTE | 2017-02-22 08:38 | NUR ---
B) PATIENT IS MORE AWAKE THIS AM, SHE IS NOT TEARFUL, SHE HAS POOR SHORT TERM MEMORY RECALL, BUT DOES KNOW HER NAME. PATIENT AMBULATES INDEPENDENTLY WITH A WALKER. I) PROVIDE PRESCRIBED MEDS. R) REDIRECT NEEDED, ENCOURAGE GROUP PARTICIPATION. P) CONTINUE POC.
[2017-02-22 08:46] VITALS: BP 136/82
--- NOTE | 2017-02-22 12:46 | PN ---
PATIENT:JASEN BLEVINS MEDICAL RECORD: [id number] LOCATION:[facility] ADMISSION DATE: 02/12/17 PROGRESS NOTE DATE OF SERVICE: 02/21/2017 SUBJECTIVE: The patient's case was discussed with staff. She has no new complaint. OBJECTIVE: The patient denies intent to harm herself or others. She generally tolerates her medicines well. Eye contact is poor. ASSESSMENT: No change in diagnoses. PLAN: Supportive and educational interventions were made. The patient's long-term prognosis is guarded. I anticipate the patient can be transitioned out of the hospital soon if this level of improvement is maintained. TRANSINT:[id number] Voice Confirmation ID: [id number] DOCUMENT ID: [id number] TYSON LOWERY MD at 1246 CC: [id number] DICTATION DATE: 02/21/17 1306 BUCK PRESSER: 02/21/17 1856 ADM IN [facility] [address] [place] [id number]
[2017-02-22 19:30] VITALS: BP 135/52
--- NOTE | 2017-02-23 03:18 | NUR ---
B) Patient alert and oriented to self, very confused and disoriented, no behaviors noted, I) Administered scheduled medications, monitored for safety and falls, R) Medication compliant, no crying episodes this shift, P) Continue plan of care.
[2017-02-23 08:42] VITALS: BP 119/62
--- NOTE | 2017-02-23 09:50 | PN ---
PATIENT:JASEN BLEVINS MEDICAL RECORD: [id number] LOCATION:[facility] ADMISSION DATE: 02/12/17 PROGRESS NOTE DATE OF SERVICE: 02/22/2017 SUBJECTIVE: The patient's case was discussed with staff. She has no new complaint. OBJECTIVE: The patient is in good behavioral control, but is severely impaired cognitively. She has limited insight about her situation. ASSESSMENT: No change in diagnoses. PLAN: Supportive and educational interventions were made. tile and mottle supervisor prognosis is guarded. TRANSINT:[id number] Voice Confirmation ID: [id number] DOCUMENT ID: [id number] TYSON LOWERY MD at 0950 CC: [id number] DICTATION DATE: 02/22/17 1320 RN WELLNESS: 02/22/17 1632 ADM IN [place] [address] [place] [address]
--- NOTE | 2017-02-23 12:11 | NUR ---
B) PATIENT IS AWAKE AND ALERT THIS AM, SHE IS ORIENTED TO PERSON ONLY. SHE AMBULATES WELL WITH A WALKER, BUT NEEDS MULTIPLE PROMPTS TO USE IT SHE FORGETS FREQUENTLY. PATIENT HAS NOT BEEN TEARFUL OR SHOWN ANY AGGRESSION TODAY. SHE HAS BEEN POLITE AND INTERACTS WELL WITH STAFF AND PEERS. I) PROVIDE PRESCRIBED MEDS, ENCOURAGE GROUP PARTICIPATION. R) PATIENT IS COMPLIANT WITH MEDS AND UNIT MILIEU. P) CONTINUE POC.
[2017-02-23 19:30] VITALS: BP 127/52
--- NOTE | 2017-02-24 05:17 | NUR ---
B] PATIENT ALERT AND ORIENTED TO SELF, VERY CONFUSED AND DISORIENTED, WANDERS AT TIMES, I] ADMINISTERED SCHEDULED MEDICATIONS, REDIRECTED NEEDED, R] MEDICATION COMPLIANT, RESTING QUIETLY NOW, P] CONTINUE PLAN OF CARE.
[2017-02-24 07:00] VITALS: BP 126/44
[2017-02-24 08:00] VITALS: Ht 152.4 cm; Wt 48.5 kg
--- NOTE | 2017-02-24 12:48 | PN ---
PATIENT:JASEN BLEVINS MEDICAL RECORD: [id number] LOCATION:[facility] ADMISSION DATE: 02/12/17 PROGRESS NOTE DATE OF SERVICE: 02/23/2017 SUBJECTIVE: The patient's case was discussed with staff. She has no new complaint. OBJECTIVE: The patient is in good behavioral control with limited insight about her condition. She does tolerate her medications well. Eye contact is fair. ASSESSMENT: No change in diagnoses. PLAN: Brief supportive and educational interventions were made. The patient's long-term prognosis is guarded. TRANSINT:[id number] Voice Confirmation ID: [id number] DOCUMENT ID: [id number] TYSON LOWERY MD at 1248 CC: [id number] DICTATION DATE: 02/23/17 1010 YARN PREPARATION SUPERVISOR: 02/23/17 1424 ADM IN [place] [address] [place] [address]
--- NOTE | 2017-02-24 17:50 | NUR ---
IS ORIENTED TO SELF ONLY.ATTEMPTED TO REORIENT TO TIME AND PLACE WITH POOR RESPONSE.IS VERY PLEASANT AND COOPERATIVE WITH STAFF AND PEERS.COMPLIANT WITH MEDS.AMBULATES WITH WALKER.WILL CONTINUE WITH PLAN OF CARE,MONITOR FOR CHANGES AND SAFETY.
[2017-02-24 19:30] VITALS: BP 117/38
--- NOTE | 2017-02-24 23:20 | NUR ---
B) Became flustered when talking to staff, knows her daughter visited but does not know why she is here. States her doctor told her to come here. States her doctor never gave a reason, "never told me anything negative about my body" ... "if I had a ride I could go home". No mention of her who is dying of cancer. I) Administer medications as ordered, redirect and reorient prn. Offer 1:1 time to express feelings. Assist with hygiene care at bedtime. R) Compliant with medications. Oriented x 1 to person only. Confused.
[2017-02-25 07:00] VITALS: BP 122/67
--- NOTE | 2017-02-25 10:00 | NUR ---
SHE IS ALERT AND QUIET THIS AM. ADMINISTER PRESCRIBED MEDICATIONS. SHE IS CALM AND COOPERATIVE WITH CARE. ASSESSMENT COMPLETED. RESTING IN RECLINER IN DAYROOM. USE WALKER FOR AMBULATING. MONITOR FOR SAFETY AND CONT POC.
--- NOTE | 2017-02-25 10:22 | PN ---
PATIENT:JASEN BLEVINS MEDICAL RECORD: [id number] LOCATION:[facility] Roman113 ADMISSION DATE: 02/12/17 PROGRESS NOTE DATE OF SERVICE: 02/20/2017 SUBJECTIVE: No new complaint. OBJECTIVE: The patient remains pleasant. Placement is pending at [facility]. On exam, mood is for the most part euthymic. Affect is somewhat shallow. Speech is repetitive. Content of thought focuses on somatic concerns only. Sensorium shows no change. ASSESSMENT: No change in diagnosis. PLAN: 1. Maintain current medications. 2. Continue supportive therapy. TRANSINT:[id number] Voice Confirmation ID: [id number] DOCUMENT ID: [id number] LASHON BURDICK III, MD at 1022 CC: [id number] DICTATION DATE: 02/20/17 1151 ELECTRON BEAM WELDER: 02/20/17 1733 ADM IN [facility] [address] [id number]
--- NOTE | 2017-02-25 11:08 | PN ---
PATIENT:JASEN BLEVINS MEDICAL RECORD: [id number] LOCATION:[facility] M Roman113 ADMISSION DATE: 02/12/17 PROGRESS NOTE DATE OF SERVICE: 02/24/2017 SUBJECTIVE: The patient's case was discussed with staff. She has no new complaint. OBJECTIVE: The patient denies intent to harm herself or others. She is tolerating her medicines well. She is very confused, but is not openly aggressive. PLAN: Supportive and educational interventions were made. She clearly is going to need long-term supervised care. TRANSINT:[id number] Voice Confirmation ID: [id number] DOCUMENT ID: [id number] TYSON LOWERY MD at 1108 CC: [id number] DICTATION DATE: 02/24/17 1247 RECEPTION: 02/24/172016 ADM IN [facility] [address] [place] [address]
[2017-02-25 19:54] VITALS: BP 154/65
--- NOTE | 2017-02-25 20:56 | NUR ---
RECEIVED IN DAYROOM. SITTING IN CHAIR SOCIALIZING AT TIMES. VERY CONFUSED. CALM AND COOPERATIVE WITH CARE AND ASSESSMENTS. REDIRECT AND REORIENT NEEDED. RESTING IN BED EYES OPEN AT THIS TIME. REINFORCE FALLS SAFETY. BED ALARM ON. ATTEMPTS TO STAND FROM BED WITHOUT ASSIST. CONTINUE PLAN OF CARE
--- NOTE | 2017-02-26 04:22 | PN ---
PATIENT:JASEN BLEVINS MEDICAL RECORD: [id number] LOCATION:[facility] Roman113 ADMISSION DATE: 02/12/17 PROGRESS NOTE DATE OF SERVICE: 02/25/2017 SUBJECTIVE: No new complaint. OBJECTIVE: The patient is pleasant. She has had no new complaints. Affect has been much better controlled. Speech is rather terse. Content of thought is negative for overt psychosis. Sensorium is unchanged. ASSESSMENT: No change in diagnosis. PLAN: 1. Continue all current medication. 2. Continue supportive therapy. TRANSINT:[id number] Voice Confirmation ID: [id number] DOCUMENT ID: [id number] LASHON BURDICK III, MD at 0422 CC: [id number] DICTATION DATE: 02/25/17 1212 CHANNEL REBUILDER: 02/25/17 1306 ADM IN [address] [place] [address]
[2017-02-26 08:00] VITALS: BP 121/60
--- NOTE | 2017-02-26 10:00 | NUR ---
AWAKE AND ALERT THIS MORNING. ASSESSMENT COMPLETED. CALM AND COOPERATIVE WITH CARE. SITTING IN RECLINER RESTING QUIETLY. SOCIALIZES WITH PEERS AND STAFF. COMPLIANT WITH TAKING PRESCRIBED MEDICATIONS. WILL CONTINUE POC.
[2017-02-26] MEDS ORDERED: NORVASC5 MG PO (12:36)
[2017-02-26] MEDS ORDERED: ZESTRIL40 MG PO (12:36)
[2017-02-26] MEDS ORDERED: PROTONIX40 MG PO (12:37)
--- NOTE | 2017-02-26 20:13 | NUR ---
RECEIVED IN DAYROOM. WALKING ABOUT SOCIALIZING WITH STAFF AND PEERS. VERY CONFUSED BUT PLEASANT. CALM AND COOPERATIVE WITH CARE AND ASSESSMENTS. CONTINUES TO SOCIALIZE WITH STAFF AND PEERS. CONTINUE PLAN OF CARE
[2017-02-26 21:15] VITALS: BP 138/63
[2017-02-27 07:58] VITALS: BP 118/69
--- NOTE | 2017-02-27 09:17 | PN ---
PATIENT:JASEN BLEVINS MEDICAL RECORD: [id number] LOCATION:[facility] Roman113 ADMISSION DATE: 02/12/17 PROGRESS NOTE DATE OF SERVICE: 02/26/2017 SUBJECTIVE: No new complaint. OBJECTIVE: The patient has been very pleasant. Arrangements have been finalized for transfer to halfway. On exam, mood is euthymic. Affect is somewhat shallow and rather childlike. Speech is terse. Content of thought is negative for overt psychosis. Sensorium is unchanged. ASSESSMENT: No change in diagnosis. PLAN: 1. Continue current treatment plan. 2. Anticipate discharge tomorrow. TRANSINT:[id number] Voice Confirmation ID: [id number] DOCUMENT ID: [id number] LASHON BURDICK III, MD at 0917 CC: [id number] DICTATION DATE: 02/26/17 1246 OSTEOLOGY TEACHER: 02/26/17 1325 ADM IN [facility] [address] [place] [address]
--- NOTE | 2017-02-27 10:52 | NUR ---
B) PATIENT IS AWAKE AND ALERT, SHE DID D/C TO [facility], ASSISTED BY STAFF TO THEIR VAN, PAPERWORK AND BELONGINGS ACCOUNTED FOR AND TAKEN WITH PATIENT. PATIENT AMBULATES WELL WITH A WALKER. I) PROVIDE PRESCRIBED MEDS. R) PATIENT IS COMPLIANT WITH MEDS AND UNIT [facility]. PATIENT D/C'D FROM [facility] AT 0900.
--- NOTE | 2017-02-27 21:12 | DS ---
PATIENT:JASEN BLEVINS :31 MEDICAL RECORD: [id number] DISCHARGE SUMMARY ADMISSION DATE: 02/12/17 DISCHARGE DATE: 02/27/17 DATE OF ADMISSION: 02/12/2017 DATE OF DISCHARGE: 02/27/2017 HISTORY OF PRESENT ILLNESS: This is an 81-year-old white female who had just been discharged from [facility] 4 days prior to this admission. The patient had a past history of dementia and had been showing increasing agitation with some delusional ideation. She had responded to some degree, but was signed out of the hospital against medical advice prior to the staff being able to make placement plans complete. The patient's behavior deteriorated after being signed out AMA and family requested readmission. For further details, please see previously dictated history. COURSE IN THE HOSPITAL: The patient was again seen in consultation by Dr. Gutierrez. Dr. Gutierrez noted the presence of hypothyroidism, gastroesophageal reflux disease, osteoporosis, vitamin D deficiency and hypertension. From a medication standpoint, there relatively little was changed. The patient was maintained on her previous medications including Exelon 9.5 mg transdermal daily, perphenazine 2 mg daily, Namenda 2.5 mg twice a day, Lexapro 10 mg daily and perphenazine 4 mg h.s. The patient did very well over the course of the hospitalization during this time. The staff was able to make final arrangements regarding placement. Contact was maintained with the family. By the time of discharge, the patient was stable. 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 AXIS II: No diagnosis. AXIS III: Gastroesophageal reflux disease, osteoporosis, vitamin D deficiency, hypertension. AXIS IV: Moderate. AXIS V: 40. PLAN: 1. The patient is discharged on current medication. 2. Follow up through physicians to the retirement. TRANSINT:[id number] Voice Confirmation ID: [id number] DOCUMENT ID: [id number] LASHON BURDICK III, MD at 2112 CC: [id number] DICTATION DATE: 02/27/17 1145 WORT EXTRACTOR: 02/27/17 1221 DIS IN 02/27/17 [place] [address]
== END 2017-02-27 10:55 | DRG 57 ==
LOC: D.PSYCH 14:22
PROVIDERS: ADMIT Psychiatry & Neurology Psychiatry
DX: G30.1 Alzheimer's disease with late onset (principal); F02.81 Dementia in other diseases classified elsewhere, unspecified severity, with behavioral disturbance; I10 Essential (primary) hypertension; E03.9 Hypothyroidism, unspecified; M81.0 Age-related osteoporosis without current pathological fracture; K21.9 Gastro-esophageal reflux disease without esophagitis; E55.9 Vitamin D deficiency, unspecified; G47.00 Insomnia, unspecified; Z74.09 Other reduced mobility; F41.8 Other specified anxiety disorders

== ENCOUNTER 2017-04-25 12:08 | Inpatient (IN) | payer MEDICARE ==
[~2017-04-25] VITALS: Ht 152.4 cm; Wt 51.3 kg
[~2017-04-25 12:08] MED LIST changes: +HALDOL5 MG PO; +HALDOL5 MG/ML IM; +LIORESAL 10 MG10 MG PO; +MEGACE40 MG PO; +NORVASC5 MG PO; +PERPHENAZINE2 MG PO; +PERPHENAZINE4 MG PO; +PRINIVIL20 MG PO; +PROTONIX40 MG PO; +ZESTRIL40 MG PO
[2017-04-25 12:45] LABS: APPEARANCE CLEAR (CLEAR); BACTERIA FEW /hpf (NONE SEEN); BILIRUBIN NEGATIVE (NEGATIVE); COLOR YELLOW (YELLOW); EPITHELIAL CELLS OCC /hpf (0-5); GLUCOSE NEGATIVE (NEGATIVE); KETONE NEGATIVE (NEGATIVE); NITRITE NEGATIVE (NEGATIVE); PROTEIN TRACE mg/dL (NEGATIVE); RED CELLS - URINE 0-5 /hpf (0-5); SPECIFIC GRAVITY 1.015 (1.005-1.020); WHITE CELLS - URINE OCC /hpf (0-5)
[2017-04-25 12:45] LABS: BASOPHILS 0.1 % (0-2); EOSINOPHILS 2.7 % (0-7); HEMATOCRIT 38.2 % (36.0-48.0); HEMOGLOBIN 12.7 g/dL (12-16); IMMATURE GRANULOCYTES 0.3 % (0-5); MCH 32.8 pg (26.0-34.0); MCHC 33.2 g/dL (31.0-37.0); MCV 98.7 fL (80.0-100.0); MEAN PLATELET VOLUME 9.1 fL (7.4-10.4); MONOCYTES 9.1 % (2-11); NEUTROPHILS 60.8 % (40-80); PLATELET COUNT 223 10x3/uL (130-400); RBC 3.87 10x6/uL (4.00-5.40); RDW 14.6 % (11.5-14.5); WBC 7.8 10x3/uL (4.8-10.8)
[2017-04-25 13:03] LABS: ALBUMIN 3.2 g/dL (3.4-5.0); ANION GAP 11.1 mmol/L (8-16); BILIRUBIN - TOTAL 0.31 mg/dL (0.2-1.3); CALCIUM 8.7 mg/dL (8.5-10.1); CARBON DIOXIDE 27.5 mmol/L (21.0-32.0); POTASSIUM - SERUM 3.6 mmol/L (3.5-5.1)
--- NOTE | 2017-04-25 17:45 | NUR ---
PATIENT ADMITS TO [facility] FROM [facility]. APPARENTLY PATIENT HAS BEEN HALLUCINATING AND HAS BEEN MORE CONFUSED, HER SPOUSE JUST APR 13 AND HER DAUGHTER SAYS THE PATIENT IS MORE DISTRAUGHT AND CONFUSED SINCE HIS PASSING. PATIENT TAKEN TO DAY ROOM VIA W/C AND SHE IS CURRENTLY SLEEPING.
[2017-04-25 18:28] VITALS: BP 191/100
[2017-04-25 20:20] LABS: CHOL - HDL RATIO 3.6 ratio (2.3-4.1); LDL-HDL RATIO 2.3 ratio (1.5-3.5); THYROID STIMULATING HORMONE 3.19 uIU/mL (0.36-3.74)
--- NOTE | 2017-04-25 20:30 | NUR ---
Restless, anxious, constantly moving about in gerichair, "I need to get in my house." ... "Can I borrow your phone?" ... confused, playing with collin alarm, constantly playing with her blanket. Given Ativan 0.5mg po PRN for anxiety.
[2017-04-25 20:31] VITALS: BP 110/72
[2017-04-25 20:33] LABS: HEMOGLOBIN A1C 5.6 % (4.8-6.0)
--- NOTE | 2017-04-25 22:35 | NUR ---
B) Remains very confused, tearful, wandering in the hallway looking for her daughter, Sylvia. Worried about where some children are, states she hasn't seen them for two days. Escorted back to her room and tucked into bed, collin alarm set. Asking for bathroom light to be left on, scared of the dark. I) Reassess mental state, encourage verbal expression and socialization, redirect and reorient as needed, medicate as per orders. R) Oriented to person only, anxious, restless, compliant with medications. P) Continue to monitor per plan of care.
[2017-04-26 06:06] VITALS: BP 110/72; BMI 22.1
[2017-04-26 06:35] VITALS: BMI 22.1
[2017-04-26 08:00] VITALS: BP 121/79
[2017-04-26 14:14] VITALS: Ht 152.4 cm; Wt 51.3 kg
--- NOTE | 2017-04-26 14:41 | NUR ---
ORIENTED TO PERSON ONLY. PT CONTINUES TO BE ANXIOUS AND TEARFUL. NO SIGNS OF HALLUCINATIONS NOTED TODAY. PT DOES WANDER THE UNIT AND MAKES RANDOM DELUSIONALS STATEMENTS. FALL PRECAUTIONS MAINTAINED. WILL CONTINUE TO MONITOR AND CONTINUE WITH PLAN OF CARE.
[2017-04-26] MEDS ORDERED: EFFEXOR37.5 MG PO (14:54)
[2017-04-26] MEDS ORDERED: KLONOPIN0.5 MG PO (15:01)
[2017-04-26] MEDS ORDERED: DEPAKOTE125 MG PO (15:02)
[2017-04-26 19:30] VITALS: BP 100/66
--- NOTE | 2017-04-26 21:52 | PSY ---
PATIENT NAME:JASEN BLEVINS MEDICAL RECORD: [id number] : 31 LOCATION:[facility]IRA Castro0 ADMISSION DATE: 04/25/17 ACCOUNT: [id number] PSYCHIATRIC EVALUATION DATE OF EVALUATION: 04/26/17 IDENTIFYING DATA: This is the fourth [facility] admission for this 82-year-old recently white female. HISTORY OF PRESENT ILLNESS: This patient has a preexisting diagnosis of Alzheimer dementia, which dates back a number of years. She was admitted in 2016 to [facility]. Subsequent to this, she was [facility] [place] [facility], but the patient's daughter removed her from the [place] [facility] and took her back home to live in [place]. Since that time, the patient's has (April 13) and the patient has considerably deteriorated since that time. In the past, the patient has shown paranoid delusional ideation and this has resurfaced. She believes that someone is trying to harm her. She has also been observed to be actively hallucinating, talking to people that are not there. She has shown a significant affective lability with frequent crying spells. Because of severe deterioration, the patient is now readmitted. PAST MEDICAL HISTORY: Significant for hypothyroidism, osteoporosis, gastroesophageal reflux disease, and hypertension. FAMILY HISTORY: Noncontributory. SOCIAL HISTORY: The patient does not have substance abuse issues. As mentioned, she has recently lost her . She has a daughter who is involved in her care. MEDICATION: At the time of admission included Exelon patch, thyroid replacement, Megace, and antidepressants. ALLERGIES: LISTED ALENDRONATE SODIUM. MENTAL STATUS: On interview, the patient is pleasant, but tearful. Affect is somewhat brittle. The patient cries very easily. Speech tends to be tangential. Content of thought is positive for delusional ideation of a paranoid nature. The patient is oriented to person and the fact that she is in a hospital, somewhere, she does not know exactly. Remote, intermediate, and short-term recall are all very significantly impaired. DIAGNOSTIC IMPRESSION: AXIS I: Alzheimer dementia with psychotic features, secondary depression. AXIS II: No diagnosis. AXIS III: Hypertension, osteoporosis, GERD, and hypothyroidism. AXIS IV: Severe. AXIS V: 38. PLAN: 1. The patient is admitted for further medical and psychiatric workup. 2. Diet and activities as tolerated. 3. Daily supportive therapy. 4. We will assist family with after care and placement. TRANSINT:[id number] Voice Confirmation ID: [id number] DOCUMENT ID: [id number] LASHON BURDICK III, MD at 2152 CC: [id number] DICTATION DATE: 04/26/17 1231 CELL TOWER CLIMBER: 04/26/17 1257 ADM IN [facility] [address] [place] [address]
--- NOTE | 2017-04-26 23:41 | NUR ---
RECEIVED IN BEDROOM. LAYING IN BED WITH EYES OPEN. HAVING VISUAL HALLUCINATIONS THIS EVENING. INCREASING ANXIETY. COOPERATIVE WITH ASSESSMENT AND CARE. PRN ATIVAN 0.5 MG PO GIVEN FOR INCREASING ANXIETY. REDIRECT AND REORIENT NEEDED. RESTING EYES CLOSED AT THIS TIME. CONTINUE PLAN OF CARE
[2017-04-27 08:16] LABS: FOLATE (FOLIC ACID) - SERUM >20.0 ng/mL (>3.0)
[2017-04-27 16:04] VITALS: BP 124/100
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
[2017-04-27 19:30] VITALS: BP 115/89
--- NOTE | 2017-04-27 21:18 | NUR ---
RECEIVED IN HALLWAY. WALKING ABOUT. VERY CONFUSED. CRYING AT TIMES. COOPERATIVE WITH ASSESSMENTS. REDIRECT AND REORIENT NEEDED. CONTINUES TO CRY AT TIMES IN HER BEDROOM. CONTINUE TO REORIENT. CONTINUE PLAN OF CARE
--- NOTE | 2017-04-27 22:32 | NUR ---
PATIENT IN BEDROOM. YELLING OUT UNCONTROLLABLY. UNABLE TO REDIRECT. INCREASING ANXIETY. PRN ATIVAN 0.5 MG IM FOR ANXIETY GIVEN.
--- NOTE | 2017-04-28 05:02 | PN ---
PATIENT:JASEN BLEVINS MEDICAL RECORD: [id number] LOCATION:KEIRA Castro ADMISSION DATE: 04/25/17 PROGRESS NOTE DATE OF SERVICE: 04/27/2017 SUBJECTIVE: The patient states "I know you." OBJECTIVE: The patient continues to show lability of affect. She remains intrusive and requires redirection from time to time. She is tolerating medications reasonably well at this point. She continues to show moderate paranoid ideation. On exam, mood is dysphoric. Affect is brittle. Speech tends to be repetitive. Content of thought as noted above. Sensorium shows no change. ASSESSMENT: No change in diagnosis. PLAN: 1. Continue current medications. 2. Continue supportive therapy. TRANSINT:[id number] Voice Confirmation ID: [id number] DOCUMENT ID: [id number] LASHON BURDICK III, MD at 0502 CC: [id number] DICTATION DATE: 04/27/17 0945 GRAIN OPERATOR: 04/27/17 1142 ADM IN [address] [place] [address]
[2017-04-28 08:05] VITALS: BP 153/81
--- NOTE | 2017-04-28 15:00 | NUR ---
CONFUSED AND DISORIENTED.AMBULATES ,WANDERS ABOUT UNIT.HAS BEEN CRYING SOME TODAY AND WANTING TO SEE "MY MOTHER".COMPLIANT WITH MEDS AND STAFF.WILL CONTINUE WITH PLAN OF CARE,MONITOR FOR CHANGES AND SAFETY.
--- NOTE | 2017-04-28 16:48 | NUR ---
HALDOL 2MG AND ATIVAN 0.5MG GIVEN FOR ANXIETY AND AGGITATION PER 'S ORDERS.CRYING,YELLING OUT.
--- NOTE | 2017-04-28 20:28 | NUR ---
RECEIVED IN HALLWAY. SITTING IN A WHEELCHAIR. VERY CONFUSED. ATTEMPTS TO STAND WITHOUT ASSIST. CALM AND COOPERATIVE WITH CARE AND ASSESSMENTS. NO SIGNS OF HALLUCINATIONS. CONTINUES TO SIT AT NURSES STATION IN WHEELCHAIR. CONTINUE PLAN OF CARE
[2017-04-28 20:30] VITALS: BP 141/71
--- NOTE | 2017-04-28 20:41 | NUR ---
RECEIVED IN HALLWAY OUTSIDE OF NURSES STATION. CONFUSED. CALM AND COOPERATIVE WITH CARE AND ASSESSMENTS. NO SIGNS OF HALLUCINATIONS. NOT CRYING OUT THIS EVENING. REDIRECT AND REORIENT NEEDED. SITTING QUIETLY IN RECLINER OUTSIDE OF NURSES STATION AT THIS TIME. CONTINUE PLAN OF CARE
[2017-04-29 06:07] LABS: VITAMIN D 25 HYDROXY 44.5 ng/mL (30.0-100.0)
--- NOTE | 2017-04-29 12:09 | NUR ---
B) PATIENT IS AWAKE AND ALERT, SHE IS SITTING IN THE DAY ROOM IN A TOMAS CHAIR, SHE HAS NOT MARY ELLEN ANY COMMENTS ABOUT HER MOTHER OR HER . SHE AMBULATES WITH A WALKER. I) PROVIDE PRESCRIBED MEDS. R) PATIENT IS COMPLIANT WITH MEDS. P) CONTINUE POC.
[2017-04-29 12:18] VITALS: BP 138/76
--- NOTE | 2017-04-29 19:50 | NUR ---
RECEIVED IN BEDROOM. LAYING IN BED WITH EYES OPEN. TALKING ABOUT WANTING TO SEE HER FRIENDS TONIGHT. UPSET BECAUSE EVERYONE IS GOING TO BED. WANTING TO STAY WITH HER FRIENDS. CALM AND COOPERATIVE WITH CARE AND ASSESSMENTS. VERY CONFUSED. NO SIGNS OF HALLUCINATIONS. RESTING IN BED EYES OPEN AT THIS TIME. CONTINUE PLAN OF CARE
[2017-04-29 20:35] VITALS: BP 167/70
--- NOTE | 2017-04-30 10:17 | PN ---
PATIENT:JASEN BLEVINS MEDICAL RECORD: [id number] LOCATION:KEIRA Roman112 ADMISSION DATE: 04/25/17 PROGRESS NOTE DATE OF SERVICE: 04/29/2017 SUBJECTIVE: No new complaint noted. OBJECTIVE: The patient continues to be quite confused. She misidentified staff members as being members of her family. She continues to have interrupted sleep. She did require p.r.n. last night because of agitation. PHYSICAL EXAMINATION: On exam today, mood is slightly anxious and dysphoric. Affect is brittle and shallow. Speech is tangential. Content of thought exhibits delusional ideation due to profound sensorium deficits. Sensorium itself is unchanged. ASSESSMENT: No change in diagnosis. PLAN: 1. We will maintain current medication. 2. Continue supportive therapy. TRANSINT:[id number] Voice Confirmation ID: [id number] DOCUMENT ID: [id number] LASHON BURDICK III, MD at 1017 CC: [id number] DICTATION DATE: 04/29/17 1344 SUPERINTENDENT MARINE: 04/29/17 1406 ADM IN [address] [place] [address]
[2017-04-30 10:32] VITALS: BP 125/67
--- NOTE | 2017-04-30 13:22 | NUR ---
Nutrition Follow Up: Chart reviewed. Pt is eating 49% meal avg on a regular vegetarian diet. No BM since admit. Labs reviewed. Meds noted including Megace. Rec continue current diet. RD following.
[2017-04-30 20:22] VITALS: BP 162/71
--- NOTE | 2017-04-30 20:28 | NUR ---
RECEIVED IN HALLWAY. STANDING AT NURSES STATION. VERY CONFUSED. CALM AND COOPERATIVE WITH CARE AND ASSESSMENTS. NO SIGNS OF HALLUCINATIONS. REDIRECT AND REORIENT NEEDED. RESTING IN BED EYES CLOSED AT THIS TIME. CONTINUE PLAN OF CARE
--- NOTE | 2017-04-30 21:10 | NUR ---
OUT IN HALLWAY STANDING AT NURSES STATION. VERY CONFUSED. INCREASING ANXIETY. PNR ATIVAN 0.5 MG IM GIVEN FOR ANXIETY
[2017-05-01 08:00] VITALS: BP 118/76
--- NOTE | 2017-05-01 09:31 | PN ---
PATIENT:JASEN BLEVINS MEDICAL RECORD: [id number] LOCATION:KEIRA Roman112 ADMISSION DATE: 04/25/17 PROGRESS NOTE DATE OF SERVICE: 04/30/2017 SUBJECTIVE: No new complaint. OBJECTIVE: The patient has continued to show some affective lability, but overall is fairly stable. On exam, mood is slightly dysphoric. Affect is shallow. Speech is tangential. Content of thought still exhibits some delusional ideation. Sensorium shows no change. ASSESSMENT: No change in diagnosis. PLAN: 1. Continue all current medications. 2. Continue supportive therapy. TRANSINT:[id number] Voice Confirmation ID: [id number] DOCUMENT ID: [id number] LASHON BURDICK III, MD at 0931 CC: [id number] DICTATION DATE: 04/30/17 1202 COMMERCIAL CENSUS TAKER: 04/30/17 1222 ADM IN [facility] [address] [id number]
--- NOTE | 2017-05-01 09:56 | NUR ---
ORIENTED TO PERSON ONLY. PT CONTINUES TO BE RESTLESS AND ANXIOUS. SHE GETS TEARFUL WHEN TALKING ABOUT HER FAMILY. PT WAS LOOKING FOR HER MOTHER TODAY BECAUSE SHE KNEW SHE WOULD BE WORRIED. REORIENTED PT TO CURRENT ENVIRONMENT. NO HALLUCINATIONS NOTED AT THIS TIME. WILL CONTINUE TO MONITOR AND CONTINUE WITH PLAN OF CARE.
--- NOTE | 2017-05-01 20:01 | NUR ---
RECEIVED IN HALLWAY. SITTING IN CHAIR. WALKS AROUND UNIT CRYING AT TIMES. VERY CONFUSED. COOPERATIVE WITH CARE AND ASSESSMENTS. NO SIGNS OF HALLUCINATIONS. REDIRECT AND REORIENT. RESTING IN RECLINER IN HALLWAY. CRYING AT TIMES. CONTINUE PLAN OF CARE
--- NOTE | 2017-05-02 01:20 | NUR ---
PATIENT IN TALLEY IN RECLINER. VERY CONFUSED. YELLING OUT. INCREASING ANXIETY. UNABLE TO REDIRECT AND REORITNE. CRYING. PRN ATIVAN 0.5 MG IM GIVEN FOR ANXIETY.
--- NOTE | 2017-05-02 01:40 | NUR ---
PATIENT TRANSFERED TO BED IN TALLEY. CONTIUES TO YELL OUT. CRYING. YELLING OUT FOR WOO. ANXIETY CONTINUES TO INCREASE. PRN HALDOL 2 MG IM GIVEN FOR INCREASING ANXIETY.
--- NOTE | 2017-05-02 07:50 | NUR ---
PT IS LETHARGIC THIS MORNING DUE TO NOT SLEEPING LAST NIGHT. SHE DOES ANSWER ASSESSMENT QUESTIONS WHEN ASKED. SHE CONTINUES TO BE RESTLESS AND ATTEMPTS TO GET UP WITHOUT ASSISTANCE. FALL PRECAUTIONS MAINTAINED. WILL CONTINUE TO MONITOR AND CONTINUE WITH PLAN OF CARE.
--- NOTE | 2017-05-02 08:07 | PN ---
PATIENT:JASEN BLEVINS MEDICAL RECORD: [id number] LOCATION:KEIRA Castro ADMISSION DATE: 04/25/17 PROGRESS NOTE DATE OF SERVICE: 05/01/2017 SUBJECTIVE: No new complaint noted. OBJECTIVE: The patient has been a bit more restless last 24 hours. She has had episodes of tearfulness. She did require Ativan p.r.n. because of agitation and insomnia. Medically; however, the patient has been stable. She is cooperative with medication and does redirect well. On exam, mood dysphoric. Affect very shallow. Speech is circular. Content of thought is positive for delusional ideation. Sensorium shows no change. ASSESSMENT: No change in diagnosis. PLAN: 1. Continue all current medications. 2. Continue supportive therapy. TRANSINT:[id number] Voice Confirmation ID: [id number] DOCUMENT ID: [id number] LASHON BURDICK III, MD at 0807 CC: [id number] DICTATION DATE: 05/01/17 1144 MEAT APPRENTICE: 05/01/17 1216 ADM IN [id number] [place] [address]
[2017-05-02 11:59] VITALS: BP 132/80
--- NOTE | 2017-05-02 19:17 | NUR ---
RECEIVED PATIENT IN DAYROOM. SITTING IN RECLINER WITH EYES OPEN. RESTLESS AND ANXIOUS. VERY CONFUSED. ATTEMPTS TO STAND WITHOUT ASSISTANCE. ALARM SOUNDING. COOPERATIVE WT CARE. REDIRECT AND REORIENT NEEDED. ENCOURAGE TO EXPRESS NEEDS. PATIENT RESTING IN RECLINER WITH EYES CLOSED AT THIS TIME. CONTINUE PLAN OF CARE.
[2017-05-02 22:00] VITALS: BP 152/70
--- NOTE | 2017-05-03 07:32 | NUR ---
PATIENT RESTING IN BEDROOM EYES CLOSED. RESPONDS TO TOUCH. CALM AND COOPERATIVE WITH CARE AND ASSESSMENTS. NO SIGNS OF HALLUCINATIONS. REDIRECT AND REORIENT NEEDED. CONTINUES TO REST QUIETLY. CONTINUE PLAN OF CARE
--- NOTE | 2017-05-03 10:07 | PN ---
PATIENT:JASEN BLEVINS MEDICAL RECORD: [id number] LOCATION:KEIRA PriestElyse112 ADMISSION DATE: 04/25/17 PROGRESS NOTE DATE OF SERVICE: 05/02/2017 SUBJECTIVE: The patient continues to be labile and requires redirection from time to time. PHYSICAL EXAMINATION: On exam, mood is dysphoric. Affect is very brittle. Speech is repetitive. Content of thought exhibits delusional ideation. Sensorium is unchanged. ASSESSMENT: No change in diagnosis. PLAN: 1. We will adjust medications as needed. 2. Continue supportive therapy. TRANSINT:[id number] Voice Confirmation ID: [id number] DOCUMENT ID: [id number] LASHON BURDICK III, MD at 1007 CC: [id number] DICTATION DATE: 05/02/17 1144 GANG LEADER: 05/02/17 1159 ADM IN [address] [place] [address]
[2017-05-03 10:47] VITALS: BP 156/64
[2017-05-03 19:30] VITALS: BP 113/70
--- NOTE | 2017-05-04 04:50 | NUR ---
B) Patient alert and oriented to self, very confused and very sad, crying and wanting to know if she did something wrong, I) Administered scheduled medications, PRN ativan 0.5 mg IM given at 19:25 for anxiety, redirected as needed R) Medication compliant, resting quietly now. P) Continue plan of care.
--- NOTE | 2017-05-04 07:51 | NUR ---
B) PATIENT IS SLEEPING, SHE ALLOWED ASSESSMENT THIS AM, SHE IS NOT YELLING OR SCREAMING THIS AM. I) PROVIDE PRESCRIBED MEDS. R) PATIENT NEEDS DIRECTION AND REDIRECTION, WILL MONITOR BEHAVIOR TODAY. P) CONTINUE POC.
[2017-05-04 08:00] VITALS: BP 143/92; BP 150/109
--- NOTE | 2017-05-04 15:28 | NUR ---
PATIENT IS STARTING TO CRY AND SAY "I WANT TO GO, IS LILI GETTING ANY MORE OF IT?" PATIENT IS CONFUSED AND NOT MAKING SENSE, BUT SHE IS GETTING ANXIOUS. ATIVAN 0.5 MG PO GIVEN NOW, WILL MONITOR.
--- NOTE | 2017-05-04 16:00 | NUR ---
PATIENT HAS SOFT MUSIC PLAYING TWO BLANKETS ON AND A PILLOW BEHIND HER BACK AND SHE IS SLEEPING NOW, NIT CRYING AND FUSSING.
[2017-05-04 19:28] VITALS: BP 157/77
--- NOTE | 2017-05-04 22:02 | NUR ---
GAVE PATIENT ATIVAN 0.5 MG IM FOR ANXIETY AT 22:05.
--- NOTE | 2017-05-05 03:05 | NUR ---
B) Patient is alert and oriented to self, sad and tearful in the day room, restless and disoriented, demanding and attention seeking I) Administered scheduled medications, redirected as needed, PRN Ativan 0.5 mg IM given at 22:00 for anxiety R) Medication compliant, fussy and needy P) Continue plan of care.
[2017-05-05 07:00] VITALS: BP 151/86
--- NOTE | 2017-05-05 09:11 | NUR ---
CONFUSED AND DISORIENTED.TEARFUL.REQUIRES SPOON FEEDING PER THIS NURSE THIS AM TO GET HER TO EAT.WILL CONTINUE WITH PLAN OF CARE,MONITOR FOR CHANGES AND SAFETY.COMPLIANT WITH MEDS CRUSHED AND GIVEN IN APPLESAUCE.
--- NOTE | 2017-05-05 20:15 | NUR ---
RECEIVED IN BEDROOM. RESTING IN BED WITH EYES CLOSED. RESPONDS TO VOICE. ORIENTED TO SELF ONLY. CALM AND COOPERATIVE WITH CARE AND ASSESSMENTS. NO SIGNS OF HALLUCINATIONS. REDIRECT AND REORIENT NEEDED, CONTINUES TO REST IN BED QUIETLY. CONTINUE PLAN OF CARE
[2017-05-06 08:17] VITALS: BP 128/58
--- NOTE | 2017-05-06 09:39 | PN ---
PATIENT:JASEN BLEVINS MEDICAL RECORD: [id number] LOCATION:[facility] ADMISSION DATE: 04/25/17 PROGRESS NOTE DATE OF SERVICE: 05/03/2017 SUBJECTIVE: No new complaint. OBJECTIVE: The patient continues to show lability of affect. She has crying spells and often does this in an attention seeking fashion. She is slightly less agitated than yesterday subsequent to the increase in perphenazine to 4 mg twice a day. On exam, mood is again dysphoric. Affect is very childlike. Speech is tangential. Content of thought exhibits moderate delusional ideation based on her sensorium deficits. Sensorium itself is unchanged. ASSESSMENT: No change in diagnosis. PLAN: 1. Maintain current medication. 2. Continue supportive therapy. TRANSINT:[id number] Voice Confirmation ID: [id number] DOCUMENT ID: [id number] LASHON BURDICK III, MD at 0939 CC: [id number] DICTATION DATE: 05/03/17 111 DATA SPECIALIST: 05/03/17 1201 ADM IN [id number] [place] [address]
--- NOTE | 2017-05-06 10:00 | NUR ---
SHE IS CONFUSED AND DISORIENTED TODAY. TEARFUL AND UPSET TO SIT AT TABLE IN DAYROOM. COOPERATIVE WITH ASSESSMENT. COMPLIANT WITH TAKING PRESCRIBED MEDICATIONS. MONITOR FOR SAFETY AND CHANGES. WILL CONTINUE PLAN OF CARE.
[2017-05-06 19:21] VITALS: BP 165/70
--- NOTE | 2017-05-06 19:36 | NUR ---
RECEIVED IN BEDROOM. RESTING IN BED WITH EYES CLOSED. RESPONDS TO TOUCH. VERY CONFUSED. NOT YELLING OUT AT THIS TIME. CALM AND COOPERATIVE WITH CARE AND ASSESSMENTS. NO SIGNS OF HALLUCINATIONS. REDIRECT AND REORIENT NEEDED. CONTINUES TO REST EYES CLOSED AT THIS TIME.
--- NOTE | 2017-05-06 20:15 | NUR ---
CRYING OUT LOUDLY. ATTEMPTS TO STAND FROM BED. ANDREA ALARM SOUNDING. [facility] FOR [facility]. [facility]
--- NOTE | 2017-05-07 06:06 | PN ---
PATIENT:JASEN BLEVINS MEDICAL RECORD: [id number] LOCATION:[facility] ADMISSION DATE: 04/25/17 PROGRESS NOTE DATE OF SERVICE: 05/06/2017 SUBJECTIVE: No new complaint. OBJECTIVE: The patient continues to show lability of affect, but aside from that no significant change. On exam, mood is dysphoric. Affect is very childlike. Speech is repetitive. Content of thought is negative for overt psychosis. Sensorium shows no change. ASSESSMENT: No change in diagnosis. PLAN: 1. Continue current medications. 2. Continue supportive therapy. TRANSINT:[id number] Voice Confirmation ID: [id number] DOCUMENT ID: [id number] LASHON BURDICK III, MD at 0606 CC: [id number] DICTATION DATE: 05/06/17 1306 LOCKER ROOM CLERK: 05/06/17 1319 ADM IN [facility] [address] [id number]
--- NOTE | 2017-05-07 08:36 | NUR ---
SW SPOKE WITH PT'S DTR, LILI, ABOUT UPCOMING DISCHARGE TO [place] TOMORROW. DTR VOICED UNDERSTANDING OF DISCUSSION.
[2017-05-07] MEDS ORDERED: ACETAMINOPHEN325 MG PO (10:44)
[2017-05-07] MEDS ORDERED: EXELON1 PATCH .1 TRANSDERM (10:44)
[2017-05-07] MEDS ORDERED: MEGACE40 MG PO (10:44)
[2017-05-07] MEDS ORDERED: NAMENDA5 MG PO (10:45)
[2017-05-07] MEDS ORDERED: LEXAPRO20 MG PO (10:45)
[2017-05-07] MEDS ORDERED: PERPHENAZINE2 MG PO (10:45)
[2017-05-07 11:08] VITALS: BP 128/80
--- NOTE | 2017-05-07 13:37 | NUR ---
Nutrition Follow Up: Chart reviewed. Pt is eating 24% meal avg on a regular vegetarian diet. +BM 05/04/17. Labs reviewed. Meds noted including Megace. Pt continues with poor po intake. She is not meeting est nutritional needs. Rec obtaining current wt on pt if possible. Rec continue current diet. Will provide supplements as pt wishes. Will continue to honor food preferences. RD following.
--- NOTE | 2017-05-07 14:00 | NUR ---
AWAKE AND ORIENTED TO SELF ONLY. VERY CONFUSED AND DISORIENTED. COOPERATIVE WITH ASSESSMENT AND TAKING MEDICATIONS CRUSHED IN APPLESAUCE. MONITOR FOR SAFETY AND CHANGES. WILL CONTINUE PLAN OF CARE.
[2017-05-07 20:06] VITALS: BP 90/54
--- NOTE | 2017-05-07 20:59 | NUR ---
RECEIVED IN HALLWAY SITTING IN A RECLINER OUTSIDE OF NURSES STATION. VERY CONFUSED. CONTINUOUSLY ATTEMPTS TO STAND WITHOUT ASSIST. NO SIGNS OF HALLUCINATIONS. ONE ON ONE FOR SAFETY. REDIRECT AND REORIENT NEEDED. CONTINUES TO SIT IN RECLINER OUTSIDE OF NURSES STATION. CONTINUE PLAN OF CARE
--- NOTE | 2017-05-08 05:14 | PN ---
PATIENT:JASEN BLEVINS MEDICAL RECORD: [id number] LOCATION:[facility] ADMISSION DATE: 04/25/17 PROGRESS NOTE DATE OF SERVICE: 05/07/2017 SUBJECTIVE: No new complaint. OBJECTIVE: The patient continues to be irritable and brittle. She slept rather poorly last night. On exam, mood is indeed irritable. Affect is shallow. Speech is somewhat repetitive. Thought content focuses on somatic concerns. Sensorium shows no change. ASSESSMENT: No change in diagnosis. PLAN: 1. Maintain current medications. 2. Anticipate discharge tomorrow. TRANSINT:[id number] Voice Confirmation ID: [id number] DOCUMENT ID: [id number] LASHON BURDICK III, MD at 0514 CC: [id number] DICTATION DATE: 05/07/17 1037 ENERGY EFFICIENCY FINANCE MANAGER: 05/07/17 1050 ADM IN [facility] [address] [id number]
[2017-05-08 08:00] VITALS: BP 134/51
--- NOTE | 2017-05-08 14:00 | NUR ---
CALM AND COOPERATIVE WITH CARE AND ASSESSMENT. FALL PRECAUTIONS MAINTAINED. COMPLIANT WITH TAKING PRESCRIBED MEDICATIONS, PATIENT IS SET TO DISCHARGE TODAY. AL DISCHARGE PAPERWORK REVIEWED AND FAXED TO [facility]. ALL BELONNGINGS BAGGED AND ACCOUNTED FOR.
--- NOTE | 2017-05-09 08:22 | DS ---
PATIENT:JASEN BLEVINS :31 MEDICAL RECORD: [id number] DISCHARGE SUMMARY ADMISSION DATE: 04/25/17 DISCHARGE DATE: 05/08/17 DATE OF ADMISSION: 04/25/2017 DATE OF DISCHARGE: 05/08/2017 HISTORY OF PRESENT ILLNESS: [facility] admission for this 82-year-old recently white female. The patient has a preexisting diagnosis of Alzheimer's dementia, which she has had for a number of years. She had been admitted to the longterm, but again began to show paranoid delusional ideation. She was exhibiting auditory hallucinations and extreme emotional lability. Because of worsening cognitive status and emotional lability, the patient was admitted. For further details, please see previously dictated history. COURSE IN THE HOSPITAL: The patient was seen in consultation by Dr. Gutierrez. He noted the presence of hypothyroidism, gastroesophageal reflux disease, osteoporosis and hypertension. The patient was treated with combination of Lexapro 20 mg daily, Namenda 5 mg b.i.d. and rivastigmine patch 9.5 mg daily. She was kept on her other nonpsychiatric medications. She was given Ativan p.r.n. for agitation. The patient showed a slow improvement in her lability. As the hospitalization progressed, she did not voice further clear cut delusional ideation. No evidence of further hallucinations. By the time of discharge, the patient was felt to be stable to be transferred to [facility]. 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 AXIS II: No diagnosis. AXIS III: Hypertension, osteoporosis, gastroesophageal reflux disease and hypothyroidism. AXIS IV: Moderate. AXIS V: 42. PLAN: 1. The patient is discharged on current medications. 2. Diet and activities as tolerated. 3. Follow up with primary care physician. TRANSINT:[id number] Voice Confirmation ID: [id number] DOCUMENT ID: [id number] LASHON BURDICK III, MD at 0822 CC: [id number] DICTATION DATE: 05/08/171117 SENIOR CUSTOMER SERVICE REPRESENTATIVE: 05/08/171925 DIS IN 05/08/17 [facility] [address] [place] [address]
== END 2017-05-08 16:20 | DRG 57 ==
LOC: D.ER 12:08 → D.PSYCH 17:30
PROVIDERS: Emergency Medicine; ADMIT Psychiatry & Neurology Psychiatry
DX: G30.9 Alzheimer's disease, unspecified (principal); F02.81 Dementia in other diseases classified elsewhere, unspecified severity, with behavioral disturbance; F41.8 Other specified anxiety disorders; I10 Essential (primary) hypertension; M81.0 Age-related osteoporosis without current pathological fracture; K21.9 Gastro-esophageal reflux disease without esophagitis; E03.9 Hypothyroidism, unspecified; Z74.09 Other reduced mobility; E78.5 Hyperlipidemia, unspecified; E55.9 Vitamin D deficiency, unspecified; G47.00 Insomnia, unspecified

== ENCOUNTER 2017-06-21 20:22 | Emergency (ER) | payer MEDICARE ==
[2017-04-26 14:14] VITALS: BMI 22.0
[~2017-06-21 20:22] MED LIST changes: +ACETAMINOPHEN325 MG PO; +DEPAKOTE125 MG PO; +EFFEXOR37.5 MG PO; +EXELON1 PATCH .1 TRANSDERM; +LEXAPRO20 MG PO
== END 2017-06-22 00:03 ==
LOC: D.ER 20:22
DX: S70.01XA Contusion of right hip, initial encounter (principal); W01.0XXA Fall on same level from slipping, tripping and stumbling without subsequent striking against object, initial encounter; Y93.89 Activity, other specified; Y92.129 Unspecified place in nursing home as the place of occurrence of the external cause; S16.1XXA Strain of muscle, fascia and tendon at neck level, initial encounter

== ENCOUNTER 2017-07-04 08:33 | Emergency (ER) | payer MEDICARE ==
[2017-04-26 14:14] VITALS: BMI 22.0
[2017-07-04 09:46] LABS: HEMATOCRIT 33.7 % (36.0-48.0); HEMOGLOBIN 11.1 g/dL (12-16); MCH 31.9 pg (26.0-34.0); MCHC 32.9 g/dL (31.0-37.0); MCV 96.8 fL (80.0-100.0); MEAN PLATELET VOLUME 9.6 fL (7.4-10.4); NEUTROPHILS 74.9 % (40-80); RBC 3.48 10x6/uL (4.00-5.40); RDW 13.1 % (11.5-14.5); WBC 7.5 10x3/uL (4.8-10.8)
[2017-07-04 09:52] LABS: PLATELET COUNT 350 10x3/uL (130-400)
[2017-07-04 09:55] LABS: APTT 33.6 SECONDS (22.8-39.4); INR 1.29 (0.85-1.17); PROTIME 15.6 SECONDS (11.6-15.0)
[2017-07-04 10:00] LABS: ALBUMIN 2.5 g/dL (3.4-5.0); ANION GAP 13.8 mmol/L (8-16); BILIRUBIN - TOTAL 0.26 mg/dL (0.2-1.3); CALCIUM 8.7 mg/dL (8.5-10.1); CARBON DIOXIDE 23.1 mmol/L (21.0-32.0); POTASSIUM - SERUM 3.9 mmol/L (3.5-5.1); PROTEIN - SERUM 6.1 g/dL (6.4-8.2)
== END 2017-07-04 10:07 | disposition home or self-care (01) ==
LOC: D.ER 08:33
PROVIDERS: Emergency Medicine
DX: S00.83XA Contusion of other part of head, initial encounter (principal); W05.0XXA Fall from non-moving wheelchair, initial encounter; Y93.89 Activity, other specified; Y92.129 Unspecified place in nursing home as the place of occurrence of the external cause; S83.91XA Sprain of unspecified site of right knee, initial encounter

== ENCOUNTER 2018-04-10 08:05 | Observation (INO) | payer MEDICARE ==
[~2018-04-10] VITALS: Ht 152.4 cm; Wt 45.0 kg
--- NOTE | ~2018-04-10 | MORECARE ---
CASE MANAGEMENT DISCHARGE SUMMARY PATIENT: JASEN BLEVINS UNIT: [id number] ADM DATE: 04/10/18 AGE: 82 : 33 SEX: F ROOM/BED: D.2102 AUTHOR: EDUARDO,DOC PHYSICIAN: REFERRING PHYSICIAN: WALE SWARTZ MD DATE OF SERVICE: 04/11/18 Discharge Plan Patient Name: JASEN BLEVINS Facility: [facility]:[place] : 1935 Planned Disposition: Nursing Facility [facility] Cert Anticipated Discharge Date: 04/11/18 Discharge Date: Expected LOS: 1 Initial Reviewer: [email or web address] Initial Review Date: 04/11/2018 Generated: 04/11/18 1:13 pm Comments DCP- Discharge Planning Updated by [email or web address]: Jarek Ray on 04/11/18 11:[address] Patient Name: JASEN BLEVINS Admission Status: ER Accout number: [id number] Admission Date: 04-10-2018 : 1935 Admission Diagnosis: Attending: WALE SWARTZ Current LOS: 1 Anticipated DC Date: 04-11-2018 Planned Disposition: Nursing Facility [facility] Cert Primary Insurance: MEDICARE A & B PLANNED EXTERNAL PROVIDER: [facility], [facility] Discharge Planning Comments: CM RECEIVED DISCHARGE ORDER, SHAVING MACHINE OPERATOR NURSE INFORMED CM THAT PT IS FROM [facility]. CM ATTEMPTED TO SPEAK TO PT IN ROOM, PT NOT ORIENTED TO PROVIDE ANY INFORMATION TO CM. CM CALLED LISTED EMERGENCY CONTACT ON FACE SHEET, [facility] B[facility]INS, , NUMBER NOT IN SERVICE; CM REVIEWED CHART, EMERGENCY CONTACT FROM [facility] PAPERWORK CALLED, SISTER [place], , WAS ALSO DISCONNECTED. CM CALLED [facility], , SPOKE TO GABRIELLE WHO REPORTS PT IS IN CERTIFIED OPHTHALMIC TECHNOLOGIST CARE, THEY WILL ACCEPT BACK TODAY, WILL BE AMBULANCE TRANSPORT. CM FAXED DISCHARGE INFORMATION TO SELIGMAN AT [phone]. NURSE REPORT TO BE CALLED TO MARTÍN AT [facility], . PT TO TRANSPORT VIA AMBULANCE. Tie Buyer: Jarek Ray DCPIA - Discharge Planning Initial Assessment Updated by [email or web address]: Jarek Ray on 04/11/18 12:00 pm * Is the patient Alert and Oriented? No * How many steps to enter\exit or inside your home? NONE * PCP DR SWARTZ * Pharmacy [facility] * Preadmission Environment [facility] * Facility Name [facility] [phone] * ADLs Total Dependent * Equipment Other * Other Equipment ALL MEDICAL EQUIPMENT PROVIDED BY FACILITY * List name and contact numbers for known caregivers / representatives who currently or will assist patient after discharge: NONE * Verbal permission to speak to the caregivers and representatives has been obtained from the patient. N/A * Community resources currently utilized None * Please name any agencies selected above. NONE * Additional services required to return to the preadmission environment? No * Can the patient safely return to the preadmission environment? Yes * Has this patient been hospitalized within the prior 30 days at any hospital? No External Providers [facility] Next Contact Date: 04/11/2018 Service Request Date: Service Type: Resolution: Reviewer: Comments: Last DP export: 04/11/18 11:05 Patient Name: JASEN BLEVINS Page [phone] at 1213 All edits/amendments must be made on the electronic document DICTATION DATE: 04/11/18 121 CARE ASSISTANT: ERIS 04/11/18 121 RPT#: [id number] DC DATE: STATUS: ADM IN [facility] [address] [place] [address] END OF REPORT
--- NOTE | ~2018-04-10 | MORECARE ---
CASE MANAGEMENT DISCHARGE SUMMARY PATIENT: JASEN BLEVINS UNIT: [id number] ADM DATE: 04/10/18 AGE: 82 : 33 SEX: F ROOM/BED: D.2100 AUTHOR: JENY CLARK PHYSICIAN: REFERRING PHYSICIAN: WALE SWARTZ MD DATE OF SERVICE: 04/11/18 Discharge Plan Patient Name: JASEN BLEVINS Facility: [facility]:[place] : 1935 Planned Disposition: Nursing Facility [facility] Cert Anticipated Discharge Date: 04/11/18 Discharge Date: Expected LOS: 1 Initial Reviewer: [email or web address] Initial Review Date: 04/11/2018 Generated: 04/11/18 1:05 pm DCPIA - Discharge Planning Initial Assessment Updated by [email or web address]: Jarek Ray on 04/11/18 12:00 pm * Is the patient Alert and Oriented? No * How many steps to enter\exit or inside your home? NONE * PCP DR SWARTZ * Pharmacy [facility] * Preadmission Environment Return To Vendor [facility] * Facility Name [facility] [phone] * ADLs Total Dependent * Equipment Other * Other Equipment ALL MEDICAL EQUIPMENT PROVIDED BY FACILITY * List name and contact numbers for known caregivers / representatives who currently or will assist patient after discharge: NONE * Verbal permission to speak to the caregivers and representatives has been obtained from the patient. N/A * Community resources currently utilized None * Please name any agencies selected above. NONE * Additional services required to return to the preadmission environment? No * Can the patient safely return to the preadmission environment? Yes * Has this patient been hospitalized within the prior 30 days at any hospital? No Patient Name: JASEN BLEVINS Page [phone] at 1205 All edits/amendments must be made on the electronic document DICTATION DATE: 04/11/181203 FREELANCE COPYWRITER: ERIS 04/11/181203 RPT#: [id number] DC DATE: STATUS: ADM IN [facility] [address] [place] [address] END OF REPORT
[2018-04-10] MEDS ORDERED: BUSPAR10 MG PO ×2 (08:49→08:50)
[2018-04-10] MEDS ORDERED: KLONOPIN0.5 MG PO ×3 (08:51→09:05)
[2018-04-10] MEDS ORDERED: FENTORA100 MCG TD (09:00)
[2018-04-10] MEDS ORDERED: REMERON15 MG PO (09:01)
[2018-04-10] MEDS ORDERED: ELIQUIS5 MG PO (09:02)
[2018-04-10] MEDS ORDERED: NUEDEXTA 20-101 EACH PO (09:03)
[2018-04-10] MEDS ORDERED: MIRALAX17 GM PO (09:03)
[2018-04-10] MEDS ORDERED: ULTRAM50 MG PO (09:04)
[2018-04-10] MEDS ORDERED: SEROQUEL50 MG PO ×2 (09:04→14:43)
[2018-04-10] MEDS ORDERED: HALDOL ORA30 MG/15 M SL (09:05)
[2018-04-10] MEDS ORDERED: NORCO 5/325 TAB1 TAB PO (09:06)
[2018-04-10] MEDS ORDERED: ZANAFLEX4 MG PO (09:07)
[2018-04-10 09:17] LABS: BASOPHILS 0.1 % (0-2); EOSINOPHILS 1.8 % (0-7); HEMATOCRIT 36.2 % (36.0-48.0); HEMOGLOBIN 11.4 g/dL (12-16); IMMATURE GRANULOCYTES 0.1 % (0-5); LYMPHOCYTES 16.8 % (15-50); MCH 29.8 pg (26.0-34.0); MCHC 31.5 g/dL (31.0-37.0); MCV 94.5 fL (80.0-100.0); MEAN PLATELET VOLUME 11.2 fL (7.4-10.4); MONOCYTES 5.9 % (2-11); NEUTROPHILS 75.3 % (40-80); RBC 3.83 10x6/uL (4.00-5.40); RDW 15.7 % (11.5-14.5); WBC 7.3 10x3/uL (4.8-10.8)
[2018-04-10 09:22] LABS: PLATELET COUNT 236 10x3/uL (130-400)
[2018-04-10 09:29] LABS: ALBUMIN 3.1 g/dL (3.4-5.0); ALKALINE PHOSPHATASE 69 U/L (46-116); ALT (SGPT) 10 U/L (10-68); APTT 31.5 SECONDS (22.8-39.4); BILIRUBIN - TOTAL 0.35 mg/dL (0.2-1.3); CALC OSMOLALITY 292 mosm/kg (275-300); CALCIUM 8.9 mg/dL (8.5-10.1); CHLORIDE - SERUM 108 mmol/L (98-107); CREATININE - SERUM 0.7 mg/dL (0.6-1.3); GLUCOSE 93 mg/dL (74-106); INR 1.23 (0.85-1.17); POTASSIUM - SERUM 3.9 mmol/L (3.5-5.1); PROTEIN - SERUM 7.6 g/dL (6.4-8.2); PROTIME 15.1 SECONDS (11.6-15.0); SODIUM 144 mmol/L (136-145); UREA NITROGEN 28 mg/dL (7-18); eGFR NON AFRICAN AMERICAN 84 mL/min (90-120)
[2018-04-10 09:31] LABS: D-DIMER-QUANTITATIVE 2.02 ug/mLFEU (0.20-0.54)
[2018-04-10 09:40] LABS: CREATINE KINASE 58 UL (21-215); TROPONIN-I < 0.017 ng/mL (0.000-0.060)
[2018-04-10 10:05] LABS: AMORPHOUS SEDIMENT <1+ /lpf (NONE SEEN); APPEARANCE SL CLDY (CLEAR); BACTERIA MODERATE /hpf (NONE SEEN); BILIRUBIN NEGATIVE (NEGATIVE); COLOR YELLOW (YELLOW); EPITHELIAL CELLS 0-5 /hpf (0-5); GLUCOSE NEGATIVE (NEGATIVE); KETONE NEGATIVE (NEGATIVE); MUCUS <1+ /lpf (NONE SEEN); NITRITE POSITIVE (NEGATIVE); PROTEIN NEGATIVE (NEGATIVE); UROBILINOGEN NORMAL (NORMAL)
[2018-04-10] MEDS ORDERED: SENNA LAXATIVE8.6 MG PO (14:35)
[2018-04-10 15:33] VITALS: BP 146/68; Ht 152.4 cm; Wt 45.0 kg
[2018-04-11 01:00] VITALS: BP 136/52
[2018-04-11 04:00] VITALS: BP 141/60
[2018-04-11 04:18] LABS: BASOPHILS 0.2 % (0-2); EOSINOPHILS 3.2 % (0-7); HEMATOCRIT 31.8 % (36.0-48.0); HEMOGLOBIN 10.2 g/dL (12-16); LYMPHOCYTES 26.1 % (15-50); MCH 30.1 pg (26.0-34.0); MCHC 32.1 g/dL (31.0-37.0); MCV 93.8 fL (80.0-100.0); MEAN PLATELET VOLUME 11.1 fL (7.4-10.4); MONOCYTES 8.5 % (2-11); PLATELET COUNT 208 10x3/uL (130-400); RBC 3.39 10x6/uL (4.00-5.40); RDW 15.6 % (11.5-14.5)
[2018-04-11 04:25] LABS: WBC 4.9 10x3/uL (4.8-10.8)
[2018-04-11 04:31] LABS: ALBUMIN 2.6 g/dL (3.4-5.0); ALKALINE PHOSPHATASE 57 U/L (46-116); ALT (SGPT) 9 U/L (10-68); BILIRUBIN - TOTAL 0.23 mg/dL (0.2-1.3); CALC OSMOLALITY 291 mosm/kg (275-300); CALCIUM 8.5 mg/dL (8.5-10.1); CARBON DIOXIDE 25.3 mmol/L (21.0-32.0); CHLORIDE - SERUM 109 mmol/L (98-107); CREATININE - SERUM 0.7 mg/dL (0.6-1.3); GLUCOSE 104 mg/dL (74-106); POTASSIUM - SERUM 3.5 mmol/L (3.5-5.1); PROTEIN - SERUM 6.4 g/dL (6.4-8.2); SODIUM 145 mmol/L (136-145); UREA NITROGEN 22 mg/dL (7-18); eGFR NON AFRICAN AMERICAN 84 mL/min (90-120)
[2018-04-11 08:08] VITALS: BP 146/56
[2018-04-11] MEDS ORDERED: Rocephin INJ IM (10:29)
[2018-04-11 10:55] VITALS: BP 130/58
== END 2018-04-11 14:04 ==
LOC: D.ER 08:05 → D.M2 12:17 → OBSVTIME 12:17 → D.M2 04-11 14:04
PROVIDERS: Family Medicine
DX: N39.0 Urinary tract infection, site not specified (principal); S00.83XA Contusion of other part of head, initial encounter; W19.XXXA Unspecified fall, initial encounter; Z74.09 Other reduced mobility; G30.9 Alzheimer's disease, unspecified; F02.81 Dementia in other diseases classified elsewhere, unspecified severity, with behavioral disturbance; F41.8 Other specified anxiety disorders; Z74.01 Bed confinement status; Z86.73 Personal history of transient ischemic attack (TIA), and cerebral infarction without residual deficits; Z66 Do not resuscitate; I10 Essential (primary) hypertension; K21.9 Gastro-esophageal reflux disease without esophagitis; E78.5 Hyperlipidemia, unspecified; K59.00 Constipation, unspecified; E03.9 Hypothyroidism, unspecified; M19.90 Unspecified osteoarthritis, unspecified site; M81.0 Age-related osteoporosis without current pathological fracture; G47.00 Insomnia, unspecified; E55.9 Vitamin D deficiency, unspecified

== ENCOUNTER 2018-09-14 12:13 | Inpatient (IN) | payer MEDICARE ==
[~2018-09-14] VITALS: Ht 152.4 cm; Wt 44.5 kg
[~2018-09-14 12:13] MED LIST changes: +BUSPAR10 MG PO; +ELIQUIS5 MG PO; +FENTORA100 MCG TD; +HALDOL ORA30 MG/15 M SL; +MIRALAX17 GM PO; +NORCO 5/325 TAB1 TAB PO; +NUEDEXTA 20-101 EACH PO; +REMERON15 MG PO; +Rocephin INJ IM; +SENNA LAXATIVE8.6 MG PO; +SEROQUEL50 MG PO; +ULTRAM50 MG PO; +ZANAFLEX4 MG PO
[2018-09-14 13:15] VITALS: BP 175/94
--- NOTE | 2018-09-14 13:20 | NUR ---
PATIENT'S YOUNGER SISTER IS AT BEDSIDE.
--- NOTE | 2018-09-14 13:22 | NUR ---
SPOKE WITH SHAYLEE RESENDIZ FROM [facility] WILL CALL AND UPDATED @ [phone]
[2018-09-14 14:01] VITALS: BP 152/89
--- NOTE | 2018-09-14 14:30 | NUR ---
PATIENT RETURNED FROM CT. FAMILY LEFT THE ROOM EARILER. SHE IS CONNECTED TO A BED ALARM FOR SAFETY. RESPIRATIONS EVEN AND UNLABORED. NO NEEDS NOTED. WILL CONTINUE TO MONITOR.
[2018-09-14 15:37] VITALS: BP 152/87
--- NOTE | 2018-09-14 15:38 | NUR ---
PATIENT'S SISTER IS RUFUS ZAMBRANO [phone]
--- NOTE | 2018-09-14 15:39 | NUR ---
CONTACTED [facility] AND UPDATED ON PATIENT PLAN OF CARE. SPOKE WITH SHAYLEE RESENDIZ
--- NOTE | 2018-09-14 16:03 | NUR ---
PATIENT LYING ON HER BACK WITH HER KNEES PULLED UPWARD TOWARDS HER CHEST. SHE APPEARS TO BE SLEEPING. RESPIRATIONS EVEN AND UNLABORED. WILL CONTINUE TO MONITOR.
[2018-09-14 16:04] VITALS: BP 154/81
[2018-09-14 16:24] LABS: BASOPHILS 0.1 % (0-2); EOSINOPHILS 0.9 % (0-7); HEMATOCRIT 35.5 % (36.0-48.0); HEMOGLOBIN 11.1 g/dL (12-16); IMMATURE GRANULOCYTES 0.1 % (0-5); LYMPHOCYTES 12.4 % (15-50); MCH 29.4 pg (26.0-34.0); MCHC 31.3 g/dL (31.0-37.0); MCV 94.2 fL (80.0-100.0); MEAN PLATELET VOLUME 10.6 fL (7.4-10.4); MONOCYTES 6.4 % (2-11); NEUTROPHILS 80.1 % (40-80); RBC 3.77 10x6/uL (4.00-5.40); RDW 15.4 % (11.5-14.5); WBC 8.1 10x3/uL (4.8-10.8)
[2018-09-14 16:25] LABS: PLATELET COUNT 266 10x3/uL (130-400)
[2018-09-14 16:33] LABS: APTT 29.9 SECONDS (22.8-39.4); INR 1.22 (0.85-1.17); PROTIME 14.9 SECONDS (11.6-15.0)
[2018-09-14 16:39] LABS: ALKALINE PHOSPHATASE 70 U/L (46-116); ALT (SGPT) 13 U/L (10-68); BILIRUBIN - TOTAL 0.22 mg/dL (0.2-1.3); CALC OSMOLALITY 289 mosm/kg (275-300); CALCIUM 8.5 mg/dL (8.5-10.1); CARBON DIOXIDE 30.1 mmol/L (21.0-32.0); CHLORIDE - SERUM 109 mmol/L (98-107); CREATININE - SERUM 0.7 mg/dL (0.6-1.3); GLUCOSE 96 mg/dL (74-106); POTASSIUM - SERUM 3.6 mmol/L (3.5-5.1); PROTEIN - SERUM 7.3 g/dL (6.4-8.2); SODIUM 144 mmol/L (136-145); UREA NITROGEN 22 mg/dL (7-18); eGFR NON AFRICAN AMERICAN 84 mL/min (90-120)
--- NOTE | 2018-09-14 17:15 | NUR ---
RECEIVED PT FROM SHILPA SHI IN ER, PT IS DISTRAUGHT AND CRYING AND MOANING UNCOMPREHENSIBLE SOUNDS, BED ALARM ON NO FAMILY AT BEDSIDE, ANDREA BED ORDERED PENDING CONTINUE WITH PLAN OF CARE
--- NOTE | 2018-09-14 19:15 | NUR ---
RECEIVED CARE FROM DAY NURSE. LYING IN ANDREA BED. CALLING OUT. DOES NOT RE-ORIENT. IV TO LEFT FA INFUSING PER ORDER. CALL LIGHT AT SIDE.
[2018-09-14 20:00] VITALS: BP 181/93
[2018-09-14] MEDS ORDERED: NUEDEXTA 20-101 EACH PO (20:30)
[2018-09-14] MEDS ORDERED: ZANAFLEX2 M1 PO (20:33)
[2018-09-14] MEDS ORDERED: ULTRAM50 MG PO (20:34)
[2018-09-14] MEDS ORDERED: EFFEXOR XR75 MG PO (20:36)
[2018-09-14] MEDS ORDERED: DURAGESIC1 PATCH .1 TRANSDERM (21:07)
[2018-09-15] VITALS (8 sets, daily range): BP systolic 132–181; BP diastolic 61–93; Ht 152.4 cm; Wt 44.5 kg
--- NOTE | 2018-09-15 02:24 | NUR ---
NO TELEMETRY AVAILABLE
[2018-09-15 04:57] LABS: BASOPHILS 0.1 % (0-2); EOSINOPHILS 1.2 % (0-7); HEMATOCRIT 33.7 % (36.0-48.0); HEMOGLOBIN 10.6 g/dL (12-16); IMMATURE GRANULOCYTES 0.1 % (0-5); LYMPHOCYTES 15.9 % (15-50); MCH 29.6 pg (26.0-34.0); MCHC 31.5 g/dL (31.0-37.0); MCV 94.1 fL (80.0-100.0); MEAN PLATELET VOLUME 11.1 fL (7.4-10.4); NEUTROPHILS 73.7 % (40-80); PLATELET COUNT 271 10x3/uL (130-400); RBC 3.58 10x6/uL (4.00-5.40); RDW 15.7 % (11.5-14.5); WBC 7.4 10x3/uL (4.8-10.8)
[2018-09-15 05:05] LABS: INR 1.19 (0.85-1.17); PROTIME 14.6 SECONDS (11.6-15.0)
[2018-09-15 05:12] LABS: CALC OSMOLALITY 285 mosm/kg (275-300); CALCIUM 8.4 mg/dL (8.5-10.1); CARBON DIOXIDE 27.9 mmol/L (21.0-32.0); CHLORIDE - SERUM 108 mmol/L (98-107); CREATININE - SERUM 0.6 mg/dL (0.6-1.3); GLUCOSE 90 mg/dL (74-106); POTASSIUM - SERUM 3.7 mmol/L (3.5-5.1); SODIUM 143 mmol/L (136-145); eGFR NON AFRICAN AMERICAN > 90 mL/min (90-120)
[2018-09-15 05:15] LABS: UREA NITROGEN 14 mg/dL (7-18)
--- NOTE | 2018-09-15 08:00 | NUR ---
PT RESTING IN BED, AROUSES TO NAME BEING CALLED. SPEECH IS SOMEWHAT GARBLED AND DIFFICULT TO UNDERSTAND. OFFERED AND CONSUMED WATER AT THIS TIME. REPOSITIONED. NO INCONTINENCE OF BOWELL OR BLADDER AT THIS TIME. IV INTACT TO LEFT FOREARM INTACT WITH NS @ 75ML/HR INFUSING VIA PUMP. SITE WITHOUT REDNESS OR EDEMA. STERI STRIPS TO FOREHEAD, NO DRAINAGE NOTED. ORAL CARE PROVIDED AT THIS TIME. CL WITHIN REACH. WILL CONTINUE TO MONITOR.
--- NOTE | 2018-09-15 08:04 | NUR ---
PT TAKEN VIA BED TO CT FOR CT SCAN. NO ACUTE DISTRESS NOTED.
--- NOTE | 2018-09-15 08:20 | NUR ---
PT RETURNED VIA ENCLOSED BED FROM CT. NO ACUTE DISTRESS NOTED. PT TURNED TO LEFT SIDE. NO ACUTE DISTRESS NOTED. PT SAT UP OFFERED AND CONSUMED WATER AND JUICE ONCE ARROUSED. SPEECH REMAINS GARBLED. CL WITHIN REACH. WILL CONTINUE TO MONITOR.
--- NOTE | 2018-09-15 10:00 | NUR ---
PT CLEAN AND DRY, NO INCONTINENCE NOTED. PT RESTING WITH EYES CLOSED, AROUSES WHEN NAME CALLED. NO ACUTE DISTRESS NOTED. STERI STRIPS INTACT TO FOREHEAD. IV REMAINS INTACT TO LEFT FOREARM. PT TURNED TO RIGHT SIDE. CL WITHIN REACH. OFFERED WATER, BUT DOES NOT CONSUME AT THIS TIME. WILL CONTINUE TO OFFER AND ENCOURAGE. WILL CONTINUE TO MONITOR.
[2018-09-15 12:13] LABS: % SATURATION 9 % (15-55); IRON 23 ug/dl (35-150); TOTAL IRON BIND CAPACITY 235 ug/dl (260-445); UNSAT IRON BIND CAPACITY 212 ug/dl (150-375)
--- NOTE | 2018-09-15 12:30 | NUR ---
PT RESTING IN BED WITH FAMILY AT BEDSIDE. PT IS AWAKE AND ALERT, SPEECH IS NOT GARBLED. OFFERED AND CONSUMED WATER AT THIS TIME. HOB ELEVATED. NO ACUTE DISTRESS. PROVIDED REA CARE AT THIS TIME. SMALL AMOUNT OF BM NOTED AT THIS TIME. NO ACUTE DISTRESS NOTED. CL WITHIN REACH. WILL CONTINUE TO MONITOR
--- NOTE | 2018-09-15 14:00 | NUR ---
PT RESTING ON BACK AT THIS TIME WITH EYES OPEN. NO ACUTE DISTRESS NOTED. OFFERED AND REFUSED WATER AT THIS TIME. TALKING CLEARER, BUT REMAINS INCOMPREHENSIBLE SHE SPEAKS OF VARIOUS STATEMENTS. CL WITHIN REACH. WILL CONTINUE TO MONITOR.
--- NOTE | 2018-09-15 16:00 | NUR ---
PT RESTING ON RIGHT SIDE. NO ACUTE DISTRESS NOTED. HOB ELEVATED, OFFERED AND CONSUMED WATER AT THIS TIME IN SMALL INCREMINTS. STERI STRIPS INTACT, NO DRAINAGE NOTED. IV INTACT TO LEFT FOREARM. NO EPISODE OF INCONTINENCE AT THIS TIME. CL WITHIN REACH. WILL CONTINUE TO MONITOR
--- NOTE | 2018-09-15 18:00 | NUR ---
PT RESTING IN BED WITH EYES OPEN. NO ACUTE DISTRESS NOTED. PROVIDED INCONTINCE CARE AT THIS TIME. SMALL BM NOTED WELL. ATTEMPTED IN AND OUT CATH WITHOUT SUCCESS. PT TURNED TO LEFT SIDE. OFFERED AND CONSUMED WATER AT THIS TIME. CONTINUE TO MONITOR
--- NOTE | 2018-09-15 20:00 | NUR ---
ASSESSMENT PER FLOWSHEET.PATIENT IN ANDREA NET BED MONITORING PATIENT REMAINS CONFUSED BUT RESPONDS TO VERBAL STIMULI. DOOR REMAINS OPENED. IV PATENT LEFT FOREARM OF NS AT 75CC'S/HR. SITE CLEAR. LEFT FRONTAL HEAD WITH LACTERATION NOTED. SCD'S ON.
--- NOTE | 2018-09-15 21:30 | NUR ---
MEDS GIVEN PER AUG. GIVEN IN APPLESAUCE. PATIENT ATE 100% TOLERATED WELL.
--- NOTE | 2018-09-15 23:00 | NUR ---
INC. URINE COMPLETE BED BATH WITH LINENS CHANGED.
[2018-09-16 01:16] VITALS: BP 182/79
--- NOTE | 2018-09-16 02:00 | NUR ---
EYES CLOSED RESPIRATIONS WITH EASE AND UNLABORED.
--- NOTE | 2018-09-16 03:08 | NUR ---
CONTINUING TO MONITOR PATIENT IN NET BED. EYES CLOSED RESPIRATIONS WITH EASE AND UNLABORED.
--- NOTE | 2018-09-16 04:26 | NUR ---
RN CORRECTIONAL HERE FOR BLOOD DRAW
[2018-09-16 05:12] VITALS: BP 157/69
--- NOTE | 2018-09-16 06:24 | NUR ---
MEDS GIVEN PO IN APPLESAUCE.
[2018-09-16 06:46] LABS: CALC OSMOLALITY 280 mosm/kg (275-300); CALCIUM 8.1 mg/dL (8.5-10.1); CARBON DIOXIDE 26.4 mmol/L (21.0-32.0); CHLORIDE - SERUM 106 mmol/L (98-107); CREATININE - SERUM 0.6 mg/dL (0.6-1.3); GLUCOSE 72 mg/dL (74-106); POTASSIUM - SERUM 3.3 mmol/L (3.5-5.1); SODIUM 142 mmol/L (136-145); eGFR NON AFRICAN AMERICAN > 90 mL/min (90-120)
[2018-09-16 07:00] LABS: BASOPHILS 0 % (0-2); EOSINOPHILS 1.7 % (0-7); HEMATOCRIT 32.6 % (36.0-48.0); HEMOGLOBIN 10.3 g/dL (12-16); LYMPHOCYTES 16.5 % (15-50); MCH 29.8 pg (26.0-34.0); MCHC 31.6 g/dL (31.0-37.0); MCV 94.2 fL (80.0-100.0); MEAN PLATELET VOLUME 11.4 fL (7.4-10.4); MONOCYTES 7.8 % (2-11); PLATELET COUNT 253 10x3/uL (130-400); RBC 3.46 10x6/uL (4.00-5.40); RDW 15.5 % (11.5-14.5); WBC 6.5 10x3/uL (4.8-10.8)
[2018-09-16 07:04] LABS: UREA NITROGEN 10 mg/dL (7-18)
[2018-09-16 09:38] VITALS: BP 110/77
[2018-09-16 10:18] LABS: FOLATE (FOLIC ACID) - SERUM 14.9 ng/mL (>3.0)
[2018-09-16 14:22] VITALS: BP 162/65
--- NOTE | 2018-09-16 16:11 | MORECARE ---
CASE MANAGEMENT DISCHARGE SUMMARY PATIENT: JASEN BLEVINS UNIT: [id number] ADM DATE: 09/14/18 AGE: 83 : 33 SEX: F ROOM/BED: D.2219 AUTHOR: JENY CLARK PHYSICIAN: REFERRING PHYSICIAN: FIDEL MORALES MD DATE OF SERVICE: 09/16/18 Discharge Plan Patient Name: JASEN BLEVINS Facility: [facility]:[place] : 1935 Planned Disposition: Anticipated Discharge Date: Discharge Date: Expected LOS: Initial Reviewer: [email or web address] Initial Review Date: 09/14/2018 Generated: 09/16/18 5:11 pm Patient Name: JASEN BLEVINS Page [phone] at 1611 All edits/amendments must be made on the electronic document DICTATION DATE: 09/16/18 161 BROKERAGE MANAGER: ERIS 09/16/18 161 RPT#: [id number] DC DATE: STATUS: ADM IN [facility] [address] [place] [address] END OF REPORT
--- NOTE | 2018-09-16 16:30 | NUR ---
PATIENT'S SISTER, PADMINI ZAMBRANO, CAME TO CHECK ON PATIENT. PLEASE CALL TO DISCUSS PATIENT'S CONDITION AND CARE. [phone]. SHE LIVES IN [place]. COMES TO [facility] FOR 'S DIALYSIS.
--- NOTE | 2018-09-16 20:00 | NUR ---
ASSESSMENT PER FLOWSHEET. IV PATENT LEFT FOREARM OF NS AT 75CC'S/HR. PT IN ANDREA NET BED CALL LIGHT WITHIN REACH. DOOR OPENED. LEGS AND LEFT ARM CONTRACTED. REPOSITIONED IN BED. PT IS TEARFUL. AND CALLING OUT. SET DOWN BESIDE PATIENT AND FED HER PUDDING AND APPLESAUCE WITH HER ROUTINE MEDS. TOLERATED WELL.
--- NOTE | 2018-09-16 20:49 | NUR ---
K+=3.3 WAS NOT TREATED BY PREVIOUS SHIFT PER Charo DING. PATIENT WAS GIVEN K+ 40 MEQ POWDER IN APPLESAUCE. TOLERATED WELL.
[2018-09-16 20:54] VITALS: BP 164/80
--- NOTE | 2018-09-16 23:26 | NUR ---
CRYING IF IN PAIN NORCO 5 TAB ONE PO GIVEN FOR PAIN CONTROL GIVEN IN APPLESAUCE ATE 100%. PATIENT HAS EATEN 2 APPLSAUCES AND ONE PUDDING.
--- NOTE | 2018-09-17 | NUR ---
RESTING AT THIS TIME INC URINE BATH WITH LINENS CHANGED.
[2018-09-17 00:54] VITALS: BP 210/87
--- NOTE | 2018-09-17 04:40 | NUR ---
EYES CLOSED RESPIRATIONS WITH EASE AND UNLABORED.
[2018-09-17 05:01] VITALS: BP 196/86
[2018-09-17 05:32] LABS: BASOPHILS 0.1 % (0-2); EOSINOPHILS 1.8 % (0-7); HEMATOCRIT 37.1 % (36.0-48.0); LYMPHOCYTES 17.1 % (15-50); MCH 30.1 pg (26.0-34.0); MCHC 32.3 g/dL (31.0-37.0); MEAN PLATELET VOLUME 11.4 fL (7.4-10.4); MONOCYTES 8.7 % (2-11); NEUTROPHILS 72.3 % (40-80); PLATELET COUNT 269 10x3/uL (130-400); RBC 3.99 10x6/uL (4.00-5.40); RDW 15.1 % (11.5-14.5); WBC 7.2 10x3/uL (4.8-10.8)
[2018-09-17 05:58] LABS: CALC OSMOLALITY 270 mosm/kg (275-300); CALCIUM 8.2 mg/dL (8.5-10.1); CARBON DIOXIDE 24.5 mmol/L (21.0-32.0); CHLORIDE - SERUM 102 mmol/L (98-107); CREATININE - SERUM 0.6 mg/dL (0.6-1.3); GLUCOSE 78 mg/dL (74-106); SODIUM 137 mmol/L (136-145); UREA NITROGEN 8 mg/dL (7-18); eGFR NON AFRICAN AMERICAN > 90 mL/min (90-120)
--- NOTE | 2018-09-17 06:20 | NUR ---
MEDS GIVEN WITH APPLESAUCE.
[2018-09-17 06:29] LABS: POTASSIUM - SERUM 4.1 mmol/L (3.5-5.1)
[2018-09-17 08:18] VITALS: BP 151/58
[2018-09-17 12:19] VITALS: BP 144/63
--- NOTE | 2018-09-17 12:29 | MORECARE ---
CASE MANAGEMENT DISCHARGE SUMMARY PATIENT: JASEN BLEVINS UNIT: [id number] ADM DATE: 09/14/18 AGE: 83 : 33 SEX: F ROOM/BED: D.2219 AUTHOR: JENY CLARK PHYSICIAN: REFERRING PHYSICIAN: FIDEL MORALES MD DATE OF SERVICE: 09/17/18 Discharge Plan Patient Name: JASEN BLEVINS Facility: [facility]:[place] : 1935 Planned Disposition: Nursing Facility [facility] Cert Anticipated Discharge Date: Discharge Date: Expected LOS: Initial Reviewer: [email or web address] Initial Review Date: 09/14/2018 Generated: 09/17/18 1:28 pm Comments DCP- Discharge Planning Updated by [email or web address]: Glenys Ha on 09/17/18 11:[address] Patient Name: JASEN BLEVINS Admission Status: ER Accout number: [id number] Admission Date: 09-14-2018 : 1935 Admission Diagnosis: Attending: FIDEL MORALES Current LOS: 3 Anticipated DC Date: Planned Disposition: Nursing Facility [facility] Cert Primary Insurance: MEDICARE A & B Discharge Planning Comments: PATIENT IS UNABLE TO ANSER QUESTIONS, 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 WILL ATTEMPT TO CALL HER FAMILY THAT IS IN HER RECORDS. CM TO FOLLOW AND ASSIST WITH DC PLANNING NEEDED Umbrella Frame Maker: Glenys Ha Last DP export: 09/16/18 3:11 p Patient Name: JASEN BLEVINS Page [phone] at 1229 All edits/amendments must be made on the electronic document DICTATION DATE: 09/17/181227 GENERATION ENGINEER: ERIS 09/17/188 RPT#: [id number] DC DATE: STATUS: ADM IN [facility] [address] [place] [address] END OF REPORT
--- NOTE | 2018-09-17 12:59 | NUR ---
NUTRITION F/U SPEECH THERAPY NOTE REVIEWED. SPOKE WITH INTERVENTIONIST. PT WITH 20% INTAKE BREAKFAST. MINIMAL PO INTAKE SINCE ADMIT. ? NUTRITION SUPPORT. RD FOLLOWING
--- NOTE | 2018-09-17 13:48 | NUR ---
I have reviewed this patient and I concur with the Shift Assessment completed by the Licensed Practical Nurse today this shift.
--- NOTE | 2018-09-17 13:48 | NUR ---
I have reviewed this patient and I concur with the Shift Assessment completed by the Licensed Practical Nurse today this shift.
--- NOTE | 2018-09-17 15:06 | MORECARE ---
CASE MANAGEMENT DISCHARGE SUMMARY PATIENT: JASEN BLEVINS UNIT: [id number] ADM DATE: 09/14/18 AGE: 83 : 33 SEX: F ROOM/BED: D.2219 AUTHOR: JENY CLARK PHYSICIAN: REFERRING PHYSICIAN: FIDEL MORALES MD DATE OF SERVICE: 09/17/18 Discharge Plan Patient Name: JASEN BLEVINS Facility: [facility]:[place] : 1935 Planned Disposition: Nursing Facility [facility] Cert Anticipated Discharge Date: Discharge Date: Expected LOS: Initial Reviewer: [email or web address] Initial Review Date: 09/14/2018 Generated: 09/17/18 4:05 pm Comments DCP- Discharge Planning Updated by [email or web address]: Glenys Ha on 09/17/18 1:[address] PATIENT WILL BE DISCHARGING BACK TO [facility] IN A AURICULAR DETOXIFICATION SPECIALIST BED VIA [facility]. I HAVE ATTEMPTED TO CALL HER SISTER TO LET HER KNOW BUT SHE DID NOT ANSWER. PATIENT UNABLE TO SIGN IMM. I SPOKE WITH FIDENCIO AT [place]. 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 WILL ATTEMPT TO CALL HER FAMILY THAT IS IN HER RECORDS. CM TO FOLLOW AND ASSIST WITH DC PLANNING NEEDED Knockup Worker: Glenys Ha Coverage Notice Reviewer: [email or web address] - Glenys Ha Notice Issued Date-Time: 09/17/2018 15:01 Notice Type: IM Discharge Notice Notice Delivered To: Other Relationship to Patient: Design Engineering Technician Name: ATTEMPTED TO CALL Delivery Method: PHONE - Phone Susanna Days: Prior Verbal Notification: Recipient Understood Notice: Recipient Signature: Med Rec Note Co-signed by Attending: Coverage Notice Comment: ATTEMPTED TO CALL RUFUS (SISTER) UNABLE TO SIGN HERSELF SPOKE WITH FIDENCIO BENAVIDES AT [facility] DP export: 09/17/18 11:28 a Patient Name: JASEN BLEVINS Page [phone] at 1506 All edits/amendments must be made on the electronic document DICTATION DATE: 09/17/18 150 FARM EQUIPMENT ASSEMBLER: ERIS 09/17/18 150 RPT#: [id number] DC DATE: STATUS: ADM IN [facility] [address] [place] [address] END OF REPORT
--- NOTE | 2018-09-17 15:21 | MORECARE ---
CASE MANAGEMENT DISCHARGE SUMMARY PATIENT: JASEN BLEVINS UNIT: [id number] ADM DATE: 09/14/18 AGE: 83 : 33 SEX: F ROOM/BED: D.2219 AUTHOR: JENY CLARK PHYSICIAN: REFERRING PHYSICIAN: FIDEL MORALES MD DATE OF SERVICE: 09/17/18 Discharge Plan Patient Name: JASEN BLEVINS Facility: [facility]:[place] : 1935 Planned Disposition: Nursing Facility [facility] Cert Anticipated Discharge Date: Discharge Date: Expected LOS: Initial Reviewer: [id number] Initial Review Date: 09/14/2018 Generated: 09/17/18 4:21 pm Comments DCP- Discharge Planning Updated by [id number]: Glenys Ha on 09/17/18 1:[address] PATIENT WILL BE DISCHARGING BACK TO [facility] IN A PERSONAL INSURANCE ADVISOR BED VIA [facility]. I HAVE ATTEMPTED TO CALL HER SISTER TO LET HER KNOW BUT SHE DID NOT ANSWER. PATIENT UNABLE TO SIGN IMM. I SPOKE WITH FIDENCIO AT [facility]. 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 WILL ATTEMPT TO CALL HER FAMILY THAT IS IN HER RECORDS. CM TO FOLLOW AND ASSIST WITH DC PLANNING NEEDED Physical Therapy Aides Teacher: Glenys Ha External Providers [facility] Next Contact Date: Service Request Date: Service Type: Resolution: Reviewer: Comments: Coverage Notice Reviewer: [id number] - Glenys Ha Notice Issued Date-Time: 09/17/2018 15:01 Notice Type: IM Discharge Notice Notice Delivered To: Other Relationship to Patient: Digital Cartographer Name: ATTEMPTED TO CALL FR Delivery Method: PHONE - Phone Susanna Days: Prior Verbal Notification: Recipient Understood Notice: Recipient Signature: Med Rec Note Co-signed by Attending: Coverage Notice Comment: ATTEMPTED TO CALL RUFUS (SISTER) UNABLE TO SIGN HERSELF SPOKE WITH FIDENCIO BENAVIDES AT [facility] DP export: 09/17/18 2:06 p Patient Name: JASEN BLEVINS Page [id number] at 1521 All edits/amendments must be made on the electronic document DICTATION DATE: 09/17/18 1520 ADMINISTRATIVE APPEALS TRIBUNAL MEMBER: ERIS 09/17/18 1520 RPT#: [id number] DC DATE: STATUS: ADM IN [facility] [address] [place] [address] END OF REPORT
--- NOTE | 2018-09-17 15:49 | NUR ---
CALLED REPORT TO LU AT [facility], ADVISED OF HOLDING ELIQUIS PER DR FULLER, ALL QUESTIONS ANSWERED. PENDING [facility]
--- NOTE | 2018-09-17 16:19 | NUR ---
PT PICKED UP BY [facility], PAPERWORK GIVEN TO PARK KEEPER, ALL QUESTIONS ANSWERED
--- NOTE | 2018-09-17 16:35 | NUR ---
OT NOTE: COMPLETED LUE GENTLE PROLONG STRETCH TOLERATED BY PATIENT. PT COMPLETED SIMPLE FACE WIPING WITH MAX. THANK YOU, ABBEY DURANT
--- NOTE | 2018-09-24 12:13 | MORECARE ---
CASE MANAGEMENT DISCHARGE SUMMARY PATIENT: JASEN BLEVINS UNIT: [id number] ADM DATE: 09/14/18 AGE: 83 : 33 SEX: F ROOM/BED: D.2219 AUTHOR: JENY CLARK PHYSICIAN: REFERRING PHYSICIAN: FIDEL MORALES MD DATE OF SERVICE: 09/24/18 Discharge Plan Patient Name: JASEN BLEVINS Facility: [facility]:[place] : 1935 Planned Disposition: Nursing Facility [facility] Cert Anticipated Discharge Date: Discharge Date: 09/17/2018 Expected LOS: 0 Initial Reviewer: [id number] Initial Review Date: 09/14/2018 Generated: 09/24/18 1:13 pm Comments DCP- Discharge Planning Updated by [id number]: Glenys Ha on 09/17/18 1:[address] PATIENT WILL BE DISCHARGING BACK TO [facility] IN A INTERMEDIATE BED VIA [facility]. I HAVE ATTEMPTED TO CALL HER SISTER TO LET HER KNOW BUT SHE DID NOT ANSWER. PATIENT UNABLE TO SIGN IMM. I SPOKE WITH FIDENCIO AT [facility]. 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 WILL ATTEMPT TO CALL HER FAMILY THAT IS IN HER RECORDS. 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 Name: ATTEMPTED TO CALL Delivery Method: PHONE - Phone Susanna Days: Prior Verbal Notification: Recipient Understood Notice: Recipient Signature: Med Rec Note Co-signed by Attending: Coverage Notice Comment: ATTEMPTED TO CALL RUFUS (SISTER) UNABLE TO SIGN HERSELF SPOKE WITH FIDENCIO BENAVIDES AT [facility] DP export: 09/17/18 2:21 p Patient Name: JAESN BLEVINS Page [phone] at 1213 All edits/amendments must be made on the electronic document DICTATION DATE: 09/24/18 1212 BUSINESS PRACTICES SUPERVISOR: ERIS 09/24/18 1212 RPT#: [id number] DC DATE:09/17/18 STATUS: DIS IN [facility] [address] [place] [address] END OF REPORT
== END 2018-09-17 16:19 | DRG 83 ==
LOC: D.ER 12:13 → D.MS 16:05 → D.EDHOLD 16:05 → D.MS 16:44
PROVIDERS: Family Medicine; ADMIT Internal Medicine Nephrology; ATTEND Internal Medicine Nephrology
PROC: 0HQ1XZZ Repair Face Skin, External Approach (ICD-10-PCS; principal; 2018-09-14)
DX: S06.5X9A Traumatic subdural hemorrhage with loss of consciousness of unspecified duration, initial encounter (principal); B37.89 Other sites of candidiasis; S01.81XA Laceration without foreign body of other part of head, initial encounter; D64.9 Anemia, unspecified; F03.90 Unspecified dementia, unspecified severity, without behavioral disturbance, psychotic disturbance, mood disturbance, and anxiety; K21.9 Gastro-esophageal reflux disease without esophagitis; I10 Essential (primary) hypertension; R40.2134 Coma scale, eyes open, to sound, 24 hours or more after hospital admission; R40.2314 Coma scale, best motor response, none, 24 hours or more after hospital admission; R40.2224 Coma scale, best verbal response, incomprehensible words, 24 hours or more after hospital admission